=== PATIENT | female | born 1990 ===

== ENCOUNTER 2017-01-07 10:59 | Inpatient (IN) | payer MEDICAID, OTHER ==
[2017-01-07 11:01] VITALS: BMI 28.7
[2017-01-07] MEDS: Lactated Ringer's 1,000 ML IV SCH ×2 (11:10→22:00)
--- NOTE | 2017-01-07 11:11 | OBADHP ---
Datetime: 01/07/2017 11:05 IP Chief Complaint Other: dysuria and left cva tenderness Admit Comment, IP Provider: at 28 weeks came with left cva pain started last night 7 pm, 10/10 and dysuria today this morning. pt started having fever today, no ctxs, vb, lof,+fm obhx primi pmh denies med pnv all nkda psh denies soch denires ve closed a/p at 28weeks left pylopnephritis admit to l7d ivf rocephin 1 gm once a day cbc/cmp/ua/u cultre tylenol prn cont [place] and efm renal sonogram/ob sono later dr Mazariegos aware Pelvic Type - PN: Adequate Extremities - PN: Normal Abdomen - PN: Normal Back - PN: Normal Breast - PN: Normal Lungs - PN: Normal Heart - PN: Normal Thyroid - PN: Normal Neurologic - PN: Normal HEENT - PN: Normal General - PN: Normal FHR - Baseline A Provider: 160 Contraction Comments Provider: none Comments, ACOG Physical Exam: gravid,non tendr ext no edema,no calf ten ve closed left cva ten IP Hx Assessment: The History has been Reviewed and is Current Vital Signs Provider: Reviewed IP Chief Complaint: Maternal discomfort NICHD Variability Prov Fetus A: Moderate 6-25bpm NICHD Accel Fetus A IP Provider: [id number] FHR Category Provider Fetus A: Category I Dilatation, Provider: 0 Effacement, Provider: 0 Station, Provider: =3 Genitourinary Exam: Normal DTRs - PN: Normal IP Adm Impression: , intrauterine IP Admit Plan: Admit to unit
[2017-01-07] MEDS: cefTRIAXone IV 1 gm in Dextros 50 ML IVPB SCH (11:25)
[2017-01-07 11:51] LABS: BASO % 0.2 % (0.0-2.0); EOS % 0.1 % (0.0-4.0); HEMATOCRIT 30.1 % (34.0-47.0); LYMPH # 1.2 K/uL (1.0-4.3); LYMPH % 6.6 % (20.0-40.0); MEAN CELL VOLUME 82.9 fL (81.0-99.0); MEAN CORPUSCULAR HEMOGLOBIN 27.8 pg (27.0-31.0); MEAN CORPUSCULAR HGB CONC 33.6 g/dL (33.0-37.0); MEAN PLATELET VOLUME 8.3 fL (7.2-11.7); MONO # 1.7 K/uL (0.0-0.8); MONO % 8.9 % (0.0-10.0); NRBC % 0.2 % (0.0-2.0); PLATELET COUNT 260 K/uL (130-400); RED CELL DISTRIBUTION WIDTH 14.2 % (11.5-14.5)
[2017-01-07 11:59] LABS: RBC URINE 13 /hpf (0-3); URINE BACTERIA OCC (<OCC); URINE BILIRUBIN NEGATIVE (NEGATIVE); URINE BLOOD 2+ (NEGATIVE); URINE COLOR Amber (YELLOW); URINE GLUCOSE (UA) NORMAL (Normal); URINE KETONE 2+ mg/dL (NEGATIVE); URINE LEUKOCYTE ESTERASE 3+ Leu/uL (Negative); URINE PROTEIN 1+ mg/dL (NEGATIVE); URINE UROBILINOGEN NORMAL mg/dL (0.2-1.0); WBC URINE 206 /hpf (0-5)
[2017-01-07 12:01] LABS: CHLORIDE 98 mmol/L (98-107); SODIUM 134 mmol/L (132-148)
[2017-01-07 12:03] LABS: ALB/GLOB RATIO 0.9 (1.0-2.1); ALKALINE PHOSPHATASE 127 U/L (38-126); AST/SGOT 26 U/L (14-36); BILIRUBIN,TOTAL 1.3 mg/dL (0.2-1.3); CARBON DIOXIDE 19 mmol/L (22-30); GFR AFRICAN-AMERICAN > 60; TOTAL PROTEIN 7.3 g/dL (6.3-8.3)
[2017-01-07 12:04] LABS: ALT/SGPT 20 U/L (9-52); BLOOD UREA NITROGEN 6 mg/dL (7-17); GLUCOSE,RANDOM 92 mg/dL (65-105)
[2017-01-07 12:16] LABS: POTASSIUM 2.8 mmol/L (3.6-5.2)
[2017-01-07 12:41] LABS: NEUTROPHIL 72 % (50-75); NUCLEATED RED BLOOD CELL 1 % (0-0); TOTAL CELLS COUNTED 100
[2017-01-07] MEDS: Dextrose 5%/Lactated Ringer's 1,000 ML IV SCH (14:20)
--- NOTE | 2017-01-07 15:44 | US ---
PROCEDURE: Renal ultrasound dated 01/07/2017 HISTORY: left pylonephritis, 29week preg COMPARISON: No prior study available for comparison. TECHNIQUE: Sonographic evaluation of the kidneys performed. FINDINGS: Right kidney measures 11.8 x 5.2 x 5.9 cm. Right kidney exhibits mild right-sided hydronephrosis. . Small echogenic focus measuring approximately 1.08 mm in the midpole right kidney could represent nonobstructing calculus. Left kidney measures 12.3 x 6.9 x 5.1 cm. . Shadowing calculi also noted in the left renal pelvis region with very mild left-sided hydronephrosis. Note that the possibility of pyelonephritis cannot be excluded based on this study. IMPRESSION: Bilateral renal calculi with mild bilateral hydronephrosis. Note that the possibility of pyelonephritis cannot be excluded.
--- NOTE | 2017-01-07 15:53 | US ---
PROCEDURE: HISTORY: left pylonephritis COMPARISON: TECHNIQUE: FINDINGS: Single live intrauterine fetus in cephalic presentation with an anterior placenta without previa. motion and heart motion is identified at 154 beats per minute. biometric measurements demonstrates the BPD measures 7.4 centimeters corresponding to 30 weeks gestational age. The remaining biometric measurements are concordant with the BPD. anatomic survey was not performed. Amniotic fluid is within normal limits. IMPRESSION: Thirty week intrauterine gestation. Anatomic survey not performed.
--- NOTE | 2017-01-07 20:20 | CP.PCM.CON ---
<Shantal Walker C - Last Filed: 01/07/17 20:20> Past Patient History - Infectious Disease Hx of Infectious Diseases: None - Past Social History Smoking Status: Never Smoked - PSYCHIATRIC Hx Substance Use: No - SURGICAL HISTORY Hx Surgeries: No - ANESTHESIA Hx Anesthesia: No Meds Allergies/Adverse Reactions: Allergies Allergy/AdvReac Type Severity Reaction Status Date / Time No Known Allergies Allergy Verified 08/04/16 22:52 - Medications Medications: Current Medications Acetaminophen (Tylenol 325mg Tab) 650 mg PO Q6 PRN PRN Reason: Fever >100.4 F Last Admin: 01/07/17 11:20 Dose: 650 mg Acetaminophen (Tylenol 325 Mg Supp) 650 mg CO Q4 PRN PRN Reason: Fever >100.4 F Last Admin: 01/07/17 19:26 Dose: 650 mg Ceftriaxone Sodium (Rocephin Iv 1 Gm Duplex) 50 mls @ 100 mls/hr IVPB DAILY [facility] Last Admin: 01/07/17 11:25 Dose: 100 mls/hr Lactated Ringer's (Lactated Ringer's) 1,000 mls @ 125 mls/hr IV .Q8H [facility] Last Admin: 01/07/17 11:10 Dose: 125 mls/hr Dextrose/Lactated Ringer's (Dextrose 5%/Lactated Ringer's) 1,000 mls @ 125 mls/ hr IV .Q8H [facility] Last Admin: 01/07/17 14:20 Dose: 125 mls/hr Results - Vital Signs Recent Vital Signs: Last Vital Signs Temp 100.6 F H 01/07/17 19:26 Pulse Resp BP Pulse Ox - Labs Result Diagrams: 01/07/17 11:44 01/07/17 11:44 Labs: Laboratory Results - last 24 hr 01/07/17 11:44 WBC 19.0 H D RBC 3.63 L Hgb 10.1 L D Hct 30.1 L MCV 82.9 MCH 27.8 MCHC 33.6 RDW 14.2 Plt Count 260 MPV 8.3 Neut % (Auto) 84.2 H Lymph % (Auto) 6.6 L [place] % (Auto) 8.9 Eos % (Auto) 0.1 Baso % (Auto) 0.2 Neut # 16.0 H Lymph # 1.2 [place] # 1.7 H Eos # 0.0 Baso # 0.0 Neutrophils % (Manual) 72 Band Neutrophils % 13 H* Lymphocytes % (Manual) 7 L Monocytes % (Manual) 8 Nucleated RBC % 1 H Platelet Estimate Normal Poikilocytosis (manual Slight Sodium 134 Potassium 2.8 L Chloride 98 Carbon Dioxide 19 L Anion Gap 20 BUN 6 L Creatinine 0.6 L Est GFR ( Amer) > 60 Est GFR (Non-Af Amer) > 60 Random Glucose 92 Calcium 9.0 Total Bilirubin 1.3 AST 26 ALT 20 Alkaline Phosphatase 127 H D Total Protein 7.3 Albumin 3.5 D Globulin 3.8 Albumin/Globulin Ratio 0.9 L Urine Color [place] Urine Clarity Hazy Urine pH 6.0 Ur Specific [place] 1.018 Urine Protein 1+ H Urine Glucose (UA) Normal Urine Ketones 2+ H Urine Blood 2+ H Urine Nitrate Positive H Urine Bilirubin Negative Urine Urobilinogen Normal Ur Leukocyte Esterase 3+ H Urine WBC (Auto) 206 H Urine RBC (Auto) 13 H Ur Squamous Epith Cells 62 H Urine Bacteria Occ H Blood Type O POSITIVE Antibody Screen Negative Assessment & Plan - Assessment and Plan (Free Text) Assessment: IMP: UTI UROLITHIASIS - Date & Time Date: 01/07/17 Time: 20:20 <Oscar Knowles - Last Filed: 01/08/17 17:28> History of Present Illness - History of Present Illness History of Present Illness: CRITICAL CARE PROGRESS NOTE HPI: 26 year old patient at 28 weeks gestation presents to [facility] [place] L&D ED overnight on 01/07/17 with complaints of left CVA pain which started at 7PM the night before. Pain was rated 10/10 and achy in nature. Patient also complained of dysuria and fever which began yesterday. Patient was admitted to L&D and started on IV fluids and Rocephin. ID was consulted and Meropenem was added today. This morning patient became hypotensive and febrile despite being administered Tylenol. 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 Of note, patient has had at least two UTIs during this current course which were treated. Patient denies chest pain, abdominal pain, current nausea, vomiting, diarrhea, constipation, paresthesias, palpitations at this time. PMH: no chronic diseases, just history of at least two UTIs with current Surgical Hx: none FamHx: unknown Meds: vitamins All: NKDA Social Hx: Denies tobacco, ETOH, illicit drug use Review of Systems - Review of Systems Systems not reviewed;Unavailable: Language Barrier - Constitutional Constitutional: Chills, Fever - EENT Eyes: absent: Blurred Vision, Change in Vision Ears: absent: Decreased Hearing, Ear Discharge Nose/Mouth/Throat: absent: Epistaxis, Nasal Congestion, Nasal Discharge - Cardiovascular Cardiovascular: absent: Chest Pain, Chest Pain at Rest, Chest Pain with Activity - Respiratory Respiratory: absent: Cough, Hemoptysis, Dyspnea on Exertion, Wheezing - Gastrointestinal Gastrointestinal: Nausea, Vomiting - Genitourinary Genitourinary: Dysuria, Urinary Frequency, Freq UTI - Reproductive: Female Reproductive:Female: absent: Vaginal Odor, Vaginal Pruritis Meds - Medications Medications: Current Medications Acetaminophen (Tylenol 325mg Tab) 650 mg PO Q6 PRN PRN Reason: Fever >100.4 F Last Admin: 01/08/17 12:10 Dose: 650 mg Ceftriaxone Sodium (Rocephin Iv 1 Gm Duplex) 50 mls @ 100 mls/hr IVPB DAILY [facility] Last Admin: 01/08/17 11:13 Dose: 100 mls/hr Dextrose/Lactated Ringer's (Dextrose 5%/Lactated Ringer's) 1,000 mls @ 125 mls/ hr IV .Q8H [facility] Last Admin: 01/08/17 07:00 Dose: 125 mls/hr Lactated Ringer's (Lactated Ringer's) 1,000 mls @ 150 mls/hr IV .Q6H40M [facility] Last Admin: 01/08/17 16:35 Dose: Not Given Meropenem 1 gm/ Sodium (Chloride) 100 mls @ 100 mls/hr IVPB Q8H [facility] Last Admin: 01/08/17 16:21 Dose: 100 mls/hr Potassium Chloride (Potassium Chloride 20 Meq/100 Ml) 100 mls @ 50 mls/hr IVPB ONCE ONE Stop: 01/08/17 18:01 Last Admin: 01/08/17 16:19 Dose: 50 mls/hr Multivit/Folic Acid/Iron () 1 tab PO DAILY [facility] Results - Vital Signs Recent Vital Signs: Last Vital Signs Temp 101.7 F H 01/08/17 12:10 Pulse 111 H 01/08/17 06:00 Resp 18 01/08/17 06:00 BP 94/47 L 01/08/17 06:00 Pulse Ox - Labs Result Diagrams: 01/08/17 16:32 01/08/17 16:20 Labs: Laboratory Results - last 24 hr 01/08/17 01/08/17 01/08/17 04:34 08:16 11:30 WBC 19.0 H RBC 3.02 L Hgb 8.3 L Hct 24.8 L MCV 82.2 MCH 27.6 MCHC 33.5 RDW 13.9 Plt Count 190 MPV 8.3 Neut % (Auto) Lymph % (Auto) [place] % (Auto) Eos % (Auto) Baso % (Auto) Neut # Lymph # [place] # Eos # Baso # PT INR APTT pO2 VBG pH VBG pCO2 VBG HCO3 VBG Total CO2 VBG O2 Sat (Calc) VBG Base Excess VBG Potassium Glucose Lactate Sodium 135 Potassium 2.5 L* Chloride 100 Carbon Dioxide 21 L Anion Gap 17 BUN 5 L Creatinine 0.7 Est GFR ( Amer) > 60 Est GFR (Non-Af Amer) > 60 Random Glucose 105 Lactic Acid 2.7 H Calcium 8.5 L Phosphorus Magnesium Total Bilirubin 1.1 AST 21 ALT 18 Alkaline Phosphatase 101 Total Protein 6.3 Albumin 2.9 L Globulin 3.4 Albumin/Globulin Ratio 0.8 L Venous Blood Potassium 01/08/17 01/08/17 01/08/17 16:00 16:20 16:32 WBC 16.1 H RBC 3.07 L Hgb 8.6 L Hct 25.6 L MCV 83.2 MCH 28.0 MCHC 33.7 RDW 14.2 Plt Count 158 MPV 7.9 Neut % (Auto) 81.8 H Lymph % (Auto) 10.1 L [place] % (Auto) 7.5 Eos % (Auto) 0.2 Baso % (Auto) 0.4 Neut # 13.2 H Lymph # 1.6 [place] # 1.2 H Eos # 0.0 Baso # 0.1 PT 12.0 INR 1.1 APTT 26 pO2 24 L VBG pH 7.44 H VBG pCO2 30 L VBG HCO3 21.4 VBG Total CO2 21.3 L VBG O2 Sat (Calc) 55.1 VBG Base Excess -2.7 L VBG Potassium 3.1 L Glucose 98 Lactate 1.9 Sodium 137.0 135 Potassium 3.2 L Chloride 111.0 H 101 Carbon Dioxide 19 L Anion Gap 18 BUN 4 L Creatinine 0.7 Est GFR ( Amer) > 60 Est GFR (Non-Af Amer) > 60 Random Glucose 96 Lactic Acid Calcium 8.3 L Phosphorus 2.5 Magnesium 1.4 L Total Bilirubin AST ALT Alkaline Phosphatase Total Protein Albumin Globulin Albumin/Globulin Ratio Venous Blood Potassium 3.1 L
[2017-01-08 04:40] LABS: HEMATOCRIT 24.8 % (34.0-47.0); MEAN CELL VOLUME 82.2 fL (81.0-99.0); MEAN CORPUSCULAR HEMOGLOBIN 27.6 pg (27.0-31.0); MEAN CORPUSCULAR HGB CONC 33.5 g/dL (33.0-37.0); MEAN PLATELET VOLUME 8.3 fL (7.2-11.7); RED CELL DISTRIBUTION WIDTH 13.9 % (11.5-14.5)
[2017-01-08] MEDS: Dextrose 5%/Lactated Ringer's 1,000 ML IV SCH (07:00)
[2017-01-08 08:43] LABS: CHLORIDE 100 mmol/L (98-107); SODIUM 135 mmol/L (132-148)
[2017-01-08 08:45] LABS: BILIRUBIN,TOTAL 1.1 mg/dL (0.2-1.3); CARBON DIOXIDE 21 mmol/L (22-30); GFR AFRICAN-AMERICAN > 60
[2017-01-08 08:46] LABS: ALB/GLOB RATIO 0.8 (1.0-2.1); ALKALINE PHOSPHATASE 101 U/L (38-126); ALT/SGPT 18 U/L (9-52); AST/SGOT 21 U/L (14-36); BLOOD UREA NITROGEN 5 mg/dL (7-17); CALCIUM 8.5 mg/dl (8.6-10.4); GLUCOSE,RANDOM 105 mg/dL (65-105); TOTAL PROTEIN 6.3 g/dL (6.3-8.3)
[2017-01-08 08:57] LABS: POTASSIUM 2.5 mmol/L (3.6-5.2)
[2017-01-08] MEDS ORDERED: Potassium Chloride 20 mEq 100 ML IVPB ONE ×4 (10:10→22:39)
[2017-01-08] MEDS ORDERED: Potassium Chloride 20 mEq ER Tab PO ONE (10:10)
[2017-01-08] MEDS: cefTRIAXone IV 1 gm in Dextros 50 ML IVPB SCH (11:13)
[2017-01-08] MEDS ORDERED: cefTRIAXone IV 1 gm in Dextros 50 ML IVPB ONE (12:03)
--- NOTE | 2017-01-08 15:35 | CP.PCM.CON ---
Past Patient History - Infectious Disease Hx of Infectious Diseases: None - Past Social History Smoking Status: Never Smoked - PSYCHIATRIC Hx Substance Use: No - SURGICAL HISTORY Hx Surgeries: No - ANESTHESIA Hx Anesthesia: No Meds Allergies/Adverse Reactions: Allergies Allergy/AdvReac Type Severity Reaction Status Date / Time No Known Allergies Allergy Verified 08/04/16 22:52 - Medications Medications: Current Medications Acetaminophen (Tylenol 325mg Tab) 650 mg PO Q6 PRN PRN Reason: Fever >100.4 F Last Admin: 01/08/17 12:10 Dose: 650 mg Ceftriaxone Sodium (Rocephin Iv 1 Gm Duplex) 50 mls @ 100 mls/hr IVPB [facility]ILY [facility] Last Admin: 01/08/17 11:13 Dose: 100 mls/hr Dextrose/Lactated Ringer's (Dextrose 5%/Lactated Ringer's) 1,000 mls @ 125 mls/ hr IV .Q8H [facility] Last Admin: 01/08/17 07:00 Dose: 125 mls/hr Lactated Ringer's (Lactated Ringer's) 1,000 mls @ 150 mls/hr IV .Q6H40M [facility] Meropenem 1 gm/ Sodium (Chloride) 100 mls @ 100 mls/hr IVPB Q8H [facility] Physical Exam - Constitutional Appears: No Acute Distress - Head Exam Head Exam: ATRAUMATIC, NORMAL INSPECTION, NORMOCEPHALIC - Eye Exam Eye Exam: EOMI, Normal appearance, PERRL Pupil Exam: NORMAL ACCOMODATION, PERRL - ENT Exam ENT Exam: Mucous Membranes Moist - Neck Exam Neck exam: Positive for: Full Rom. Negative for: Lymphadenopathy - Respiratory Exam Respiratory Exam: Clear to Auscultation Bilateral, NORMAL BREATHING PATTERN. absent: Wheezes - Cardiovascular Exam Cardiovascular Exam: REGULAR RHYTHM, +S1, +S2 - GI/Abdominal Exam GI & Abdominal Exam: Normal Bowel Sounds, Soft Additional comments: gravid - Extremities Exam Extremities exam: Positive for: full ROM, normal capillary refill, pedal pulses present. Negative for: calf tenderness, pedal edema, tenderness - Back Exam Additional comments: left flank tenderness - Neurological Exam Neurological exam: Alert, CN II-XII Intact, Oriented x3 - Psychiatric Exam Psychiatric exam: Normal Affect, Normal Mood Results - Vital Signs Recent Vital Signs: Last Vital Signs Temp 101.7 F H 01/08/17 12:10 Pulse 111 H 01/08/17 06:00 Resp 18 01/08/17 06:00 BP 94/47 L 01/08/17 06:00 Pulse Ox - Labs Result Diagrams: 01/08/17 16:32 01/08/17 16:20 Labs: Laboratory Results - last 24 hr 01/08/17 01/08/17 01/08/17 04:34 08:16 11:30 WBC 19.0 H RBC 3.02 L Hgb 8.3 L Hct 24.8 L MCV 82.2 MCH 27.6 MCHC 33.5 RDW 13.9 Plt Count 190 MPV 8.3 Sodium 135 Potassium 2.5 L* Chloride 100 Carbon Dioxide 21 L Anion Gap 17 BUN 5 L Creatinine 0.7 Est GFR ( Amer) > 60 Est GFR (Non-Af Amer) > 60 Random Glucose 105 Lactic Acid 2.7 H Calcium 8.5 L Total Bilirubin 1.1 AST 21 ALT 18 Alkaline Phosphatase 101 Total Protein 6.3 Albumin 2.9 L Globulin 3.4 Albumin/Globulin Ratio 0.8 L
[2017-01-08 16:08] LABS: VENOUS BLOOD GAS BASE EXCESS -2.7 mmol/L (0.0-2.0); VENOUS BLOOD GAS PCO2 30 mmHg (40-60); VENOUS BLOOD PH 7.44 (7.32-7.43)
[2017-01-08] MEDS ORDERED: Ketamine 50 mg/ml Inj (10 ml) ONE (16:10)
[2017-01-08] MEDS ORDERED: Propofol 10 mg/ml Inj (20 ML) ONE (16:12)
[2017-01-08] MEDS: Meropenem 1 GM in Sodium Chloride 0.9% 100 ML IVPB SCH ×2 (16:21→23:30)
[2017-01-08] MEDS ORDERED: Succinylcholine Chloride 20 mg/ml Syr (5 ml) IV ONE (16:26)
[2017-01-08 16:32] LABS: CHLORIDE 101 mmol/L (98-107); POTASSIUM 3.2 mmol/L (3.6-5.2); SODIUM 135 mmol/L (132-148)
[2017-01-08] MEDS ORDERED: Sodium Citrate/Citric Acid 15 ml Sol ONE (16:32)
[2017-01-08 16:34] LABS: INR 1.1
[2017-01-08 16:35] LABS: BLOOD UREA NITROGEN 4 mg/dL (7-17); CARBON DIOXIDE 19 mmol/L (22-30); GFR AFRICAN-AMERICAN > 60
[2017-01-08] MEDS: Lactated Ringer's 1,000 ML IV SCH ×3 (16:35→23:55)
[2017-01-08 16:36] LABS: CALCIUM 8.3 mg/dl (8.6-10.4); GLUCOSE,RANDOM 96 mg/dL (65-105); MAGNESIUM 1.4 mg/dL (1.6-2.3); PHOSPHOROUS 2.5 mg/dL (2.5-4.5)
--- NOTE | 2017-01-08 16:36 | PCM.SEPTIC ---
Sepsis Progress Note - Reassessment Type Date of Evaluation: 01/08/17 Time of Evaluation: 16:00 Reassessment Type: Non-invasive reassessment - Non Invasive Reassessment Were the most recent vital sign reviewed: Yes Vital Sign (Latest): Temp Pulse Resp BP Pulse Ox 101.7 F H 111 H 18 94/47 L 01/08/17 12:10 01/08/17 06:00 01/08/17 06:00 01/08/17 06:00 Cardiovascular: Yes: Tachycardia. No: Murmur, Bradycardia Respiratory: Yes: Normal Breath Sounds. No: Decreased Breath Sounds, Accessory Muscle Use, Wheezing, Respiratory Distress Capillary Refill: Normal (Less than 2 sec) Pulses: Normal Radial, Normal Dorsalis Pedis Skin: Warm, Dry Fluid Challenge performed: Yes
[2017-01-08 16:42] LABS: BASO # 0.1 K/uL (0.0-0.2); BASO % 0.4 % (0.0-2.0); EOS % 0.2 % (0.0-4.0); HEMATOCRIT 25.6 % (34.0-47.0); LYMPH # 1.6 K/uL (1.0-4.3); LYMPH % 10.1 % (20.0-40.0); MEAN CELL VOLUME 83.2 fL (81.0-99.0); MEAN CORPUSCULAR HGB CONC 33.7 g/dL (33.0-37.0); MEAN PLATELET VOLUME 7.9 fL (7.2-11.7); MONO # 1.2 K/uL (0.0-0.8); MONO % 7.5 % (0.0-10.0); RED CELL DISTRIBUTION WIDTH 14.2 % (11.5-14.5); WHITE BLOOD COUNT 16.1 K/uL (4.8-10.8)
[2017-01-08] MEDS ORDERED: Lactated Ringer's 1,000 ML IV ONE (16:50)
--- NOTE | 2017-01-08 17:31 | PCM.SURG1 ---
Surgeon's Initial Post Op Note - Surgeon's Notes Surgeon: Herb DEL CID Inventory Control Associate: NONE Type of Anesthesia: General Endo Pre-Operative Diagnosis: SEPTIC SHOCK. UTI. HYDRONEPHROSIS. UROLITHIASIS Operative Findings: L PYONEPHROSIS Post-Operative Diagnosis: SAME Operation Performed: CYSTO, L URETERAL STENT INSERTION Specimen/Specimens Removed: URINE L KIDNEY, BLADDER Estimated Blood Loss: EBL {In ML}: 0 Blood Products Given: N/A Post-Op Condition: Good Date of Surgery/Procedure: 01/08/17 Time of Surgery/Procedure: 05:20
--- NOTE | 2017-01-08 17:35 | CP.PCM.CON ---
<Oscar Knowles - Last Filed: 01/08/17 17:44> History of Present Illness - History of Present Illness History of Present Illness: CRITICAL CARE PROGRESS NOTE HPI: 26 year old patient at 28 weeks gestation presents to [facility] L[facility] ED overnight on 01/07/17 with complaints of left CVA pain which started at 7PM the night before. Pain was rated 10/10 and achy in nature. Patient also complained of dysuria and fever which began yesterday. Patient was admitted to L&D and started on IV fluids and Rocephin. ID was consulted and Meropenem was added today. This morning patient became hypotensive and febrile despite being administered Tylenol. [employer] and code sepsis were called and the patient was transferred to ICU for close monitoring. Of note, patient has had at least two UTIs during this current course which were treated. Patient denies chest pain, abdominal pain, current nausea, vomiting, diarrhea, constipation, paresthesias, palpitations at this time. PMH: no chronic diseases, just history of at least two UTIs with current Surgical Hx: none FamHx: unknown Meds: vitamins All: NKDA Social Hx: Denies tobacco, ETOH, illicit drug use Review of Systems - Constitutional Constitutional: Chills, Fever. absent: Anorexia, Headache - EENT Eyes: absent: Blind Spots, Blurred Vision, Change in Vision Ears: absent: Decreased Hearing, Ear Discharge Nose/Mouth/Throat: absent: Nasal Congestion, Dysphagia - Cardiovascular Cardiovascular: absent: Chest Pain, Chest Pain at Rest, Chest Pain with Activity , Claudication, Dyspnea - Respiratory Respiratory: absent: Cough, Dyspnea, Hemoptysis, Dyspnea on Exertion, Chest Congestion - Gastrointestinal Gastrointestinal: Nausea. absent: Constipation, Diarrhea - Genitourinary Genitourinary: Dysuria - Menstruation Menstruation: Amenorrhea, Other () - Musculoskeletal Musculoskeletal: Arthralgias, Back Pain - Integumentary Integumentary: absent: Change in Hair, Dry Skin - Neurological Neurological: absent: Abnormal Hearing, Abnormal Movements - Psychiatric Psychiatric: absent: Anxiety, Change in Appetite, Difficulty Concentrating Past Patient History - Infectious Disease Hx of Infectious Diseases: None - Past Social History Smoking Status: Never Smoked - PSYCHIATRIC Hx Substance Use: No - SURGICAL HISTORY Hx Surgeries: No - ANESTHESIA Hx Anesthesia: No Meds Allergies/Adverse Reactions: Allergies Allergy/AdvReac Type Severity Reaction Status Date / Time No Known Allergies Allergy Verified 08/04/16 22:52 - Medications Medications: Current Medications Acetaminophen (Tylenol 325mg Tab) 650 mg PO Q6 PRN PRN Reason: Fever >100.4 F Last Admin: 01/08/17 12:10 Dose: 650 mg Ceftriaxone Sodium (Rocephin Iv 1 Gm Duplex) 50 mls @ 100 mls/hr IVPB DAILY [facility] Last Admin: 01/08/17 11:13 Dose: 100 mls/hr Dextrose/Lactated Ringer's (Dextrose 5%/Lactated Ringer's) 1,000 mls @ 125 mls/ hr IV .Q8H [facility] Last Admin: 01/08/17 07:00 Dose: 125 mls/hr Lactated Ringer's (Lactated Ringer's) 1,000 mls @ 150 mls/hr IV .Q6H40M [facility] Last Admin: 01/08/17 16:35 Dose: Not Given Meropenem 1 gm/ Sodium (Chloride) 100 mls @ 100 mls/hr IVPB Q8H [facility] Last Admin: 01/08/17 16:21 Dose: 100 mls/hr Potassium Chloride (Potassium Chloride 20 Meq/100 Ml) 100 mls @ 50 mls/hr IVPB ONCE ONE Stop: 01/08/17 18:01 Last Admin: 01/08/17 16:19 Dose: 50 mls/hr Multivit/Folic Acid/Iron () 1 tab PO DAILY [facility] Physical Exam - Constitutional Appears: Non-toxic, No Acute Distress - Head Exam Head Exam: ATRAUMATIC, NORMAL INSPECTION, NORMOCEPHALIC - Eye Exam Eye Exam: EOMI, Normal appearance, PERRL Pupil Exam: NORMAL ACCOMODATION - ENT Exam ENT Exam: Mucous Membranes Moist - Neck Exam Neck exam: Positive for: Full Rom - Respiratory Exam Respiratory Exam: Clear to Auscultation Bilateral, NORMAL BREATHING PATTERN. absent: Accessory Muscle Use, Wheezes - Cardiovascular Exam Cardiovascular Exam: Tachycardia, +S1, +S2. absent: Bradycardia, Clicks, Diastolic murmur - GI/Abdominal Exam GI & Abdominal Exam: Normal Bowel Sounds, Soft. absent: Tenderness Additional comments: gravid abdomen - Extremities Exam Extremities exam: Positive for: full ROM, pedal pulses present. Negative for: joint swelling, pedal edema, tenderness - Back Exam Back exam: CVA tenderness (L), FULL ROM - Neurological Exam Neurological exam: Alert, CN II-XII Intact, Oriented x3 - Psychiatric Exam Psychiatric exam: Normal Affect, Normal Mood - Skin Skin Exam: Dry, Intact, Normal Color, Warm Results - Vital Signs Recent Vital Signs: Last Vital Signs Temp 99.8 F H 01/08/17 16:00 Pulse 117 H 01/08/17 16:00 Resp 20 01/08/17 16:00 BP 106/63 01/08/17 16:00 Pulse Ox 97 01/08/17 16:00 - Labs Result Diagrams: 01/08/17 16:32 01/08/17 16:20 Labs: Laboratory Results - last 24 hr 01/08/17 01/08/17 01/08/17 04:34 08:16 11:30 WBC 19.0 H RBC 3.02 L Hgb 8.3 L Hct 24.8 L MCV 82.2 MCH 27.6 MCHC 33.5 RDW 13.9 Plt Count 190 MPV 8.3 Neut % (Auto) Lymph % (Auto) [place] % (Auto) Eos % (Auto) Baso % (Auto) Neut # Lymph # [place] # Eos # Baso # PT INR APTT pO2 VBG pH VBG pCO2 VBG HCO3 VBG Total CO2 VBG O2 Sat (Calc) VBG Base Excess VBG Potassium Glucose Lactate Sodium 135 Potassium 2.5 L* Chloride 100 Carbon Dioxide 21 L Anion Gap 17 BUN 5 L Creatinine 0.7 Est GFR ( Amer) > 60 Est GFR (Non-Af Amer) > 60 Random Glucose 105 Lactic Acid 2.7 H Calcium 8.5 L Phosphorus Magnesium Total Bilirubin 1.1 AST 21 ALT 18 Alkaline Phosphatase 101 Total Protein 6.3 Albumin 2.9 L Globulin 3.4 Albumin/Globulin Ratio 0.8 L Venous Blood Potassium 01/08/17 01/08/17 01/08/17 16:00 16:20 16:32 WBC 16.1 H RBC 3.07 L Hgb 8.6 L Hct 25.6 L MCV 83.2 MCH 28.0 MCHC 33.7 RDW 14.2 Plt Count 158 MPV 7.9 Neut % (Auto) 81.8 H Lymph % (Auto) 10.1 L [place] % (Auto) 7.5 Eos % (Auto) 0.2 Baso % (Auto) 0.4 Neut # 13.2 H Lymph # 1.6 [place] # 1.2 H Eos # 0.0 Baso # 0.1 PT 12.0 INR 1.1 APTT 26 pO2 24 L VBG pH 7.44 H VBG pCO2 30 L VBG HCO3 21.4 VBG Total CO2 21.3 L VBG O2 Sat (Calc) 55.1 VBG Base Excess -2.7 L VBG Potassium 3.1 L Glucose 98 Lactate 1.9 Sodium 137.0 135 Potassium 3.2 L Chloride 111.0 H 101 Carbon Dioxide 19 L Anion Gap 18 BUN 4 L Creatinine 0.7 Est GFR ( Amer) > 60 Est GFR (Non-Af Amer) > 60 Random Glucose 96 Lactic Acid Calcium 8.3 L Phosphorus 2.5 Magnesium 1.4 L Total Bilirubin AST ALT Alkaline Phosphatase Total Protein Albumin Globulin Albumin/Globulin Ratio Venous Blood Potassium 3.1 L Assessment & Plan - Assessment and Plan (Free Text) Assessment: 26yo at 28wks presenting with pyelonephritis. Transferred to ICU for monitoring of hypotension after code sepsis called. Plan: Neuro: AAOX3 No gross neurological deficits CVS: Hypotensive (94/47) Tachycardic (HR 111) Monitor VS Resp: VBG: pCO2 30, pO2 24, HCO3 21.4 Lactic acid: 2.7 GI: Maintain euglycemia : 28 wks UTI - abx as below B/L nephrolithiasis with mild b/l hydronephrosis Possible pyelonephritis Urology (Dr. Shantal Walker) consulted - help appreciated s/p cystoscopy with ureteral stent placement this afternoon.- F/U recommendations 01/07/17 OB U/S: Thirty week intrauterine gestation. Anatomic survey not performed. 01/07/17 Renal U/S: Bilateral renal calculi with mild bilateral hydronephrosis. Note that the possibility of pyelonephritis cannot be excluded. UA (01/07/17): protein 1+, ketones 2+, blood 2+, nitrates +, Leuk est 3+, WBCs 206, RBCs 13, sq epith cells 62, bacteria Occ BUN/Cr: 5.0/0.7 IVF: D5LR @125mls/hr IV, LR@150mls/hr IV heart monitoring Q 6 hours and NST Q12 while in ICU and medical floor per OBGYN team Heme: Leukocytosis (WBC 19.0) Anemia (Hgb 8.3) Hypokalemia (2.5-> 3.2) - repleted. Will replete ID: febrile (101.7F) Leukocytosis (WBC 19.0) Bandemia (13%) Urine and blood cxs pending 01/07/17 Urine cx: multiple species. suggest repeat specimen ID (Dr. Fierro) on the case - help appreciated Ceftriaxone 1g IVP daily - Day #2 Meropenem 1gm IVPB Q8H - Day #1 Prophylaxis: SCDs Acetaminophen 650mg PO Q6h prn Fever >100.4 <Guillermo Tony - Last Filed: 01/08/17 18:28> Meds - Medications Medications: Current Medications Acetaminophen (Tylenol 325mg Tab) 650 mg PO Q6 PRN PRN Reason: Fever >100.4 F Last Admin: 01/08/17 12:10 Dose: 650 mg Ceftriaxone Sodium (Rocephin Iv 1 Gm Duplex) 50 mls @ 100 mls/hr IVPB DAILY [facility] Last Admin: 01/08/17 11:13 Dose: 100 mls/hr Dextrose/Lactated Ringer's (Dextrose 5%/Lactated Ringer's) 1,000 mls @ 125 mls/ hr IV .Q8H [facility] Last Admin: 01/08/17 07:00 Dose: 125 mls/hr Lactated Ringer's (Lactated Ringer's) 1,000 mls @ 150 mls/hr IV .Q6H40M [facility] Last Admin: 01/08/17 18:05 Dose: 150 mls/hr Meropenem 1 gm/ Sodium (Chloride) 100 mls @ 100 mls/hr IVPB Q8H [facility] Last Admin: 01/08/17 16:21 Dose: 100 mls/hr Magnesium Sulfate/Dextrose (Magnesium Sulfate 1 Gm/100 Ml D5w) 100 mls @ 200 mls/hr IVPB ONCE ONE Stop: 01/08/17 18:29 Last Admin: 01/08/17 18:08 Dose: 200 mls/hr Potassium Chloride (Potassium Chloride 20 Meq/100 Ml) 100 mls @ 50 mls/hr IVPB Q2H [facility] Stop: 01/08/17 22:14 Last Admin: 01/08/17 18:08 Dose: 50 mls/hr Multivit/Folic Acid/Iron () 1 tab PO DAILY [facility] Results - Vital Signs Recent Vital Signs: Last Vital Signs Temp 99.8 F H 01/08/17 16:00 Pulse 117 H 01/08/17 16:00 Resp 20 01/08/17 16:00 BP 106/63 01/08/17 16:00 Pulse Ox 97 01/08/17 16:00 - Labs Result Diagrams: 01/08/17 16:32 01/08/17 16:20 Labs: Laboratory Results - last 24 hr 01/08/17 01/08/17 01/08/17 04:34 08:16 11:30 WBC 19.0 H RBC 3.02 L Hgb 8.3 L Hct 24.8 L MCV 82.2 MCH 27.6 MCHC 33.5 RDW 13.9 Plt Count 190 MPV 8.3 Neut % (Auto) Lymph % (Auto) [place] % (Auto) Eos % (Auto) Baso % (Auto) Neut # Lymph # [place] # Eos # Baso # PT INR APTT pO2 VBG pH VBG pCO2 VBG HCO3 VBG Total CO2 VBG O2 Sat (Calc) VBG Base Excess VBG Potassium Glucose Lactate Sodium 135 Potassium 2.5 L* Chloride 100 Carbon Dioxide 21 L Anion Gap 17 BUN 5 L Creatinine 0.7 Est GFR ( Amer) > 60 Est GFR (Non-Af Amer) > 60 Random Glucose 105 Lactic Acid 2.7 H Calcium 8.5 L Phosphorus Magnesium Total Bilirubin 1.1 AST 21 ALT 18 Alkaline Phosphatase 101 Total Protein 6.3 Albumin 2.9 L Globulin 3.4 Albumin/Globulin Ratio 0.8 L Venous Blood Potassium Blood Type Antibody Screen 01/08/17 01/08/17 01/08/17 16:00 16:20 16:32 WBC 16.1 H RBC 3.07 L Hgb 8.6 L Hct 25.6 L MCV 83.2 MCH 28.0 MCHC 33.7 RDW 14.2 Plt Count 158 MPV 7.9 Neut % (Auto) 81.8 H Lymph % (Auto) 10.1 L [place] % (Auto) 7.5 Eos % (Auto) 0.2 Baso % (Auto) 0.4 Neut # 13.2 H Lymph # 1.6 [place] # 1.2 H Eos # 0.0 Baso # 0.1 PT 12.0 INR 1.1 APTT 26 pO2 24 L VBG pH 7.44 H VBG pCO2 30 L VBG HCO3 21.4 VBG Total CO2 21.3 L VBG O2 Sat (Calc) 55.1 VBG Base Excess -2.7 L VBG Potassium 3.1 L Glucose 98 Lactate 1.9 Sodium 137.0 135 Potassium 3.2 L Chloride 111.0 H 101 Carbon Dioxide 19 L Anion Gap 18 BUN 4 L Creatinine 0.7 Est GFR ( Amer) > 60 Est GFR (Non-Af Amer) > 60 Random Glucose 96 Lactic Acid Calcium 8.3 L Phosphorus 2.5 Magnesium 1.4 L Total Bilirubin AST ALT Alkaline Phosphatase Total Protein Albumin Globulin Albumin/Globulin Ratio Venous Blood Potassium 3.1 L Blood Type O POSITIVE Antibody Screen Negative Attending/Attestation - Attestation I have personally seen and examined this patient.: Yes I have fully participated in the care of the patient.: Yes I have reviewed all pertinent clinical information: Yes Notes (Text): 01/08/17 18:25 Patient seen and examined 26yo at 28wks presenting with pyelonephritis. Transferred to ICU for monitoring of hypotension after code sepsis called. Status post cystoscopy and ureteral stent placement Continue IV fluids and antibiotics Follow-up culture and sensitivity
--- NOTE | 2017-01-08 17:38 | CP.PCM.PN ---
Subjective - Date & Time of Evaluation Date of Evaluation: 01/08/17 Time of Evaluation: 05:00 - Subjective Subjective: PGY3 OBGYN progress note Was present during patient's procedure. Auscultated heart tones of 148 before anesthesia, 136 after anesthesia and 148 after the surgery was completed. Patient to go back to ICU for close monitoring. Orders placed for heart tone auscultation q6 hours and NST q12 hours while in ICU and on the medical floor. Plan discussed with Attending, Dr. Delilah Morton, DO Objective - Vital Signs/Intake and Output Vital Signs (last 24 hours): Temp Pulse Resp BP Pulse Ox 101.7 F H 111 H 18 94/47 L 01/08/17 12:10 01/08/17 06:00 01/08/17 06:00 01/08/17 06:00 Intake and Output: 01/08/17 01/08/17 06:59 18:59 Intake Total 150 Balance 150 - Medications Medications: Current Medications Acetaminophen (Tylenol 325mg Tab) 650 mg PO Q6 PRN PRN Reason: Fever >100.4 F Last Admin: 01/08/17 12:10 Dose: 650 mg Ceftriaxone Sodium (Rocephin Iv 1 Gm Duplex) 50 mls @ 100 mls/hr IVPB DAILY [facility] Last Admin: 01/08/17 11:13 Dose: 100 mls/hr Dextrose/Lactated Ringer's (Dextrose 5%/Lactated Ringer's) 1,000 mls @ 125 mls/ hr IV .Q8H [facility] Last Admin: 01/08/17 07:00 Dose: 125 mls/hr Lactated Ringer's (Lactated Ringer's) 1,000 mls @ 150 mls/hr IV .Q6H40M [facility] Last Admin: 01/08/17 16:35 Dose: Not Given Meropenem 1 gm/ Sodium (Chloride) 100 mls @ 100 mls/hr IVPB Q8H [facility] Last Admin: 01/08/17 16:21 Dose: 100 mls/hr Potassium Chloride (Potassium Chloride 20 Meq/100 Ml) 100 mls @ 50 mls/hr IVPB ONCE ONE Stop: 01/08/17 18:01 Last Admin: 01/08/17 16:19 Dose: 50 mls/hr Multivit/Folic Acid/Iron () 1 tab PO DAILY [facility] - Labs Labs: 01/08/17 16:32 01/08/17 16:20 PT 12.0 SECONDS (9.7-12.2) 01/08/17 16:20 INR 1.1 01/08/17 16:20 APTT 26 SECONDS (21-34) 01/08/17 16:20
[2017-01-08] MEDS: Potassium Chloride 20 mEq 100 ML IVPB SCH ×2 (18:08→20:05)
[2017-01-08 22:22] LABS: CHLORIDE 101 mmol/L (98-107); POTASSIUM 3.3 mmol/L (3.6-5.2); SODIUM 131 mmol/L (132-148)
[2017-01-08 22:25] LABS: CARBON DIOXIDE 17 mmol/L (22-30); GFR AFRICAN-AMERICAN > 60
[2017-01-08 22:26] LABS: BLOOD UREA NITROGEN 2 mg/dL (7-17); CALCIUM 7.7 mg/dl (8.6-10.4); GLUCOSE,RANDOM 176 mg/dL (65-105)
[2017-01-09 06:47] LABS: BASO % 0.2 % (0.0-2.0); EOS # 0.1 K/uL (0.0-0.7); EOS % 0.4 % (0.0-4.0); HEMATOCRIT 24.4 % (34.0-47.0); LYMPH # 2.2 K/uL (1.0-4.3); LYMPH % 14.3 % (20.0-40.0); MAGNESIUM 1.3 mg/dL (1.6-2.3); MEAN CELL VOLUME 84.1 fL (81.0-99.0); MEAN CORPUSCULAR HEMOGLOBIN 28.6 pg (27.0-31.0); MEAN PLATELET VOLUME 8.2 fL (7.2-11.7); MONO # 1.4 K/uL (0.0-0.8); MONO % 9.1 % (0.0-10.0); NRBC % 0.2 % (0.0-2.0); RED CELL DISTRIBUTION WIDTH 14.5 % (11.5-14.5); WHITE BLOOD COUNT 15.6 K/uL (4.8-10.8)
[2017-01-09 06:51] LABS: ALB/GLOB RATIO 0.8 (1.0-2.1); ALKALINE PHOSPHATASE 107 U/L (38-126); ALT/SGPT 23 U/L (9-52); AST/SGOT 35 U/L (14-36); BILIRUBIN,TOTAL 0.9 mg/dL (0.2-1.3); BLOOD UREA NITROGEN 3 mg/dL (7-17); CALCIUM 7.9 mg/dl (8.6-10.4); CARBON DIOXIDE 19 mmol/L (22-30); CHLORIDE 103 mmol/L (98-107); GFR AFRICAN-AMERICAN > 60; GLUCOSE,RANDOM 82 mg/dL (65-105); PHOSPHOROUS 2.9 mg/dL (2.5-4.5); POTASSIUM 3.5 mmol/L (3.6-5.2); TOTAL PROTEIN 5.9 g/dL (6.3-8.3)
[2017-01-09 07:00] LABS: SODIUM 135 mmol/L (132-148)
[2017-01-09] MEDS: Meropenem 1 GM in Sodium Chloride 0.9% 100 ML IVPB SCH ×3 (07:24→23:22)
--- NOTE | 2017-01-09 07:58 | PCM.URO ---
Urology Progress Note - General General: No Complaints - Subjective Abdominal Pain: No Flank Pain: Yes (MILD) Fever & Chills: Yes (MILD FEVER) - Objective Lab Results Last 24 Hours: Laboratory Results - last 24 hr 01/08/17 01/08/17 01/08/17 08:16 11:30 16:00 WBC RBC Hgb Hct MCV MCH MCHC RDW Plt Count MPV Neut % (Auto) Lymph % (Auto) [place] % (Auto) Eos % (Auto) Baso % (Auto) Neut # Lymph # [place] # Eos # Baso # PT INR APTT pO2 24 L VBG pH 7.44 H VBG pCO2 30 L VBG HCO3 21.4 VBG Total CO2 21.3 L VBG O2 Sat (Calc) 55.1 VBG Base Excess -2.7 L VBG Potassium 3.1 L Glucose 98 Lactate 1.9 Sodium 135 137.0 Potassium 2.5 L* Chloride 100 111.0 H Carbon Dioxide 21 L Anion Gap 17 BUN 5 L Creatinine 0.7 Est GFR ( Amer) > 60 Est GFR (Non-Af Amer) > 60 Random Glucose 105 Lactic Acid 2.7 H Calcium 8.5 L Phosphorus Magnesium Total Bilirubin 1.1 AST 21 ALT 18 Alkaline Phosphatase 101 Total Protein 6.3 Albumin 2.9 L Globulin 3.4 Albumin/Globulin Ratio 0.8 L Venous Blood Potassium 3.1 L Blood Type Antibody Screen 01/08/17 01/08/17 01/08/17 16:20 16:32 22:05 WBC 16.1 H RBC 3.07 L Hgb 8.6 L Hct 25.6 L MCV 83.2 MCH 28.0 MCHC 33.7 RDW 14.2 Plt Count 158 MPV 7.9 Neut % (Auto) 81.8 H Lymph % (Auto) 10.1 L [place] % (Auto) 7.5 Eos % (Auto) 0.2 Baso % (Auto) 0.4 Neut # 13.2 H Lymph # 1.6 [place] # 1.2 H Eos # 0.0 Baso # 0.1 PT 12.0 INR 1.1 APTT 26 pO2 VBG pH VBG pCO2 VBG HCO3 VBG Total CO2 VBG O2 Sat (Calc) VBG Base Excess VBG Potassium Glucose Lactate Sodium 135 131 L Potassium 3.2 L 3.3 L Chloride 101 101 Carbon Dioxide 19 L 17 L Anion Gap 18 16 BUN 4 L 2 L Creatinine 0.7 0.6 L Est GFR ( Amer) > 60 > 60 Est GFR (Non-Af Amer) > 60 > 60 Random Glucose 96 176 H Lactic Acid Calcium 8.3 L 7.7 L Phosphorus 2.5 Magnesium 1.4 L Total Bilirubin AST ALT Alkaline Phosphatase Total Protein Albumin Globulin Albumin/Globulin Ratio Venous Blood Potassium Blood Type O POSITIVE Antibody Screen Negative 01/09/17 06:30 WBC 15.6 H RBC 2.91 L Hgb 8.3 L Hct 24.4 L MCV 84.1 MCH 28.6 MCHC 34.0 RDW 14.5 Plt Count 160 MPV 8.2 Neut % (Auto) 76.0 H Lymph % (Auto) 14.3 L [place] % (Auto) 9.1 Eos % (Auto) 0.4 Baso % (Auto) 0.2 Neut # 11.8 H Lymph # 2.2 [place] # 1.4 H Eos # 0.1 Baso # 0.0 PT INR APTT pO2 VBG pH VBG pCO2 VBG HCO3 VBG Total CO2 VBG O2 Sat (Calc) VBG Base Excess VBG Potassium Glucose Lactate Sodium 135 Potassium 3.5 L Chloride 103 Carbon Dioxide 19 L Anion Gap 17 BUN 3 L Creatinine 0.4 L Est GFR ( Amer) > 60 Est GFR (Non-Af Amer) > 60 Random Glucose 82 Lactic Acid Calcium 7.9 L Phosphorus 2.9 Magnesium 1.3 L Total Bilirubin 0.9 AST 35 ALT 23 Alkaline Phosphatase 107 Total Protein 5.9 L Albumin 2.6 L Globulin 3.2 Albumin/Globulin Ratio 0.8 L Venous Blood Potassium Blood Type Antibody Screen Intake & Output: Intake & Output 01/08/17 01/09/17 01/09/17 18:59 06:59 18:59 Intake Total 950 3290 150 Output Total 1000 3950 Balance -50 -660 150 Weight 163 lb 2.273 oz Intake: Intake, IV Amount 950 2250 150 Left Hand 600 2100 150 Right Antecubital 200 Left Hand 150 150 Oral 1040 Output: Urine 1000 3950 Urethral ([place]) 1000 3950 Vital Signs: Vital Signs - 24 hr 01/08/17 01/08/17 01/08/17 12:10 16:00 16:45 Temperature 101.7 F H 99.8 F H 99.4 F Pulse Rate 115 H Respiratory 33 H Rate Blood Pressure 106/63 O2 Sat by Pulse 98 Oximetry 01/08/17 01/08/17 01/08/17 17:37 17:56 18:17 Temperature Pulse Rate 122 H 110 H 107 H Respiratory 25 H 25 H Rate Blood Pressure 99/60 L 91/47 L 96/52 L O2 Sat by Pulse 97 100 100 Oximetry 01/08/17 01/08/17 01/08/17 18:32 18:47 19:00 Temperature 99 F Pulse Rate 109 H 105 H 119 H Respiratory 28 H 30 H 18 Rate Blood Pressure 94/48 L 97/52 L 97/52 L O2 Sat by Pulse 100 100 97 Oximetry 01/08/17 01/08/17 01/08/17 19:02 19:32 20:00 Temperature 99.2 F Pulse Rate 123 H 124 H 124 H Respiratory 24 22 22 Rate Blood Pressure 88/52 L 97/50 L 97/50 L O2 Sat by Pulse 100 99 99 Oximetry 01/08/17 01/08/17 01/08/17 20:13 20:39 20:56 Temperature Pulse Rate 118 H 110 H 111 H Respiratory 28 H 32 H 24 Rate Blood Pressure 107/58 L 107/58 L O2 Sat by Pulse 99 99 99 Oximetry 01/08/17 01/08/17 01/08/17 21:00 21:39 22:00 Temperature Pulse Rate 115 H 111 H 118 H Respiratory 16 30 H 32 H Rate Blood Pressure 107/58 L 95/59 L 95/59 L O2 Sat by Pulse 100 99 100 Oximetry 01/08/17 01/08/17 01/08/17 22:39 23:00 23:39 Temperature Pulse Rate 117 H 116 H 115 H Respiratory 29 H 19 31 H Rate Blood Pressure 91/52 L 91/52 L 91/43 L O2 Sat by Pulse 99 99 99 Oximetry 01/09/17 01/09/17 01/09/17 00:00 00:39 01:00 Temperature 100.4 F H Pulse Rate 128 H 115 H 115 H Respiratory 17 28 H 30 H Rate Blood Pressure 91/43 L 82/43 L 82/43 L O2 Sat by Pulse 99 98 99 Oximetry 01/09/17 01/09/17 01/09/17 01:10 01:39 02:00 Temperature Pulse Rate 115 H 115 H 120 H Respiratory 25 H 26 H 28 H Rate Blood Pressure 97/46 L 101/52 L 101/52 L O2 Sat by Pulse 99 99 Oximetry 01/09/17 01/09/17 01/09/17 02:39 03:00 03:39 Temperature Pulse Rate 114 H 117 H 118 H Respiratory 25 H 28 H 20 Rate Blood Pressure 94/48 L 94/48 L 96/46 L O2 Sat by Pulse 100 98 Oximetry 01/09/17 01/09/17 01/09/17 04:00 04:40 05:00 Temperature 100.2 F H Pulse Rate 123 H 121 H 121 H Respiratory 26 H 26 H 22 Rate Blood Pressure 96/46 L 93/40 L 93/40 L O2 Sat by Pulse 98 97 98 Oximetry 01/09/17 01/09/17 01/09/17 05:39 06:00 06:39 Temperature Pulse Rate 118 H 115 H 117 H Respiratory 15 25 H 20 Rate Blood Pressure 89/44 L 89/44 L 96/47 L O2 Sat by Pulse 98 99 Oximetry 01/09/17 01/09/17 01/09/17 07:00 07:39 07:41 Temperature Pulse Rate 118 H 120 H 115 H Respiratory 25 H 15 23 Rate Blood Pressure 91/53 L 96/47 L O2 Sat by Pulse 99 98 99 Oximetry - Physical Exam Abdominal Exam: Soft, Non-Tender, Non-Distended Back: No CVA Tenderness Urine Color: Clear, Yellow (MUCH CLEARER URINE, EXCELLENT OUTPUT) - Plan Intake & Output: Yes Additional Information: IMP: DOING WELL POST CYSTO, STENT INSERTION. IMPROVED RE HYPOTENSION AND RE PURULENT URINE. UTI/ UROSEPSIS. - Date & Time of Note Date: 01/09/17 Time: 07:58
--- NOTE | 2017-01-09 07:59 | CP.CCUPN ---
<EleniPedrojose - Last Filed: 01/09/17 12:19> CCU Subjective - Physician Review Subjective (Free Text): 01/09/17 08:06 Patient seen and examined in no acute distress . Patient has mild flank pain. She is tolerating a diet without complaints. Patient was febrile overnight. She denies headaches, chest pain, palpitations, chills, paresthesias, nausea, vomiting or diarrhea at this time. CCU Objective - Vital Signs / Intake & Output Vital Signs (Last 4 hours): Vital Signs Temp Pulse Resp BP Pulse Ox 01/09/17 07:41 115 H 23 96/47 L 99 01/09/17 07:39 120 H 15 91/53 L 98 01/09/17 07:00 118 H 25 H 99 01/09/17 06:39 117 H 20 96/47 L 01/09/17 06:00 115 H 25 H 89/44 L 99 01/09/17 05:39 118 H 15 89/44 L 98 01/09/17 05:00 121 H 22 93/40 L 98 01/09/17 04:40 121 H 26 H 93/40 L 97 01/09/17 04:00 100.2 F H 123 H 26 H 96/46 L 98 Intake and Output (Last 8hrs): Intake & Output 01/08/17 01/09/17 01/09/17 22:59 06:59 14:59 Intake Total 2390 1850 150 Output Total 2900 2050 Balance -510 -200 150 Weight 163 lb 2.273 oz Intake: Intake, IV Amount 1850 1350 150 Left Hand 1350 1350 150 Right Antecubital 200 Left Hand 300 Oral 540 500 Output: Urine 2900 2050 Urethral (Plascencia) 2900 2050 - Physical Exam Physical Exam Limitations: Negative for: Altered Mental Status, Clinical Condition Head: Positive for: Atraumatic, Normocephalic Pupils: Positive for: PERRL Extroacular Muscles: Positive for: EOMI Conjunctiva: Positive for: Normal Ears: Positive for: Normal Mouth: Positive for: Moist Mucous Membranes Neck: Positive for: Normal Range of Motion Respiratory/Chest: Positive for: Clear to Auscultation. Negative for: Respiratory Distress, Wheezes Cardiovascular: Positive for: Normal S1, S2 Abdomen: Positive for: Normal Bowel Sounds, Other (gravid abdomen). Negative for: Tenderness Upper Extremity: Negative for: Edema Lower Extremity: Positive for: NORMAL PULSES. Negative for: Edema, CALF TENDERNESS Neurological: Positive for: CN II-XII Intact, Speech Normal, Motor Func Grossly Intact Skin: Positive for: Warm, Normal Color Psychiatric: Positive for: Alert, Oriented x 3, Normal Insight, Normal Concentration - Medications Active Medications: Active Medications Generic Name Dose Route Start Last Admin Trade Name Freq PRN Reason Stop Dose Admin Acetaminophen 650 mg 01/07/17 11:03 01/08/17 12:10 Tylenol 325mg Tab PO 650 mg Q6 PRN Administration Fever >100.4 F Ceftriaxone Sodium 50 mls @ 100 mls/hr 01/07/17 11:15 01/08/17 11:13 Rocephin Iv 1 Gm Duplex IVPB 100 mls/hr DAILY SCOTTY Administration Meropenem 1 gm/ Sodium 100 mls @ 100 mls/hr 01/08/17 15:30 01/09/17 07:24 Chloride IVPB 100 mls/hr Q8H SCOT[facility] Administration Potassium Chloride 10 meq/ 1,005 mls @ 150 mls/hr 01/08/17 22:45 01/09/17 07:00 Lactated Ringer's IV 150 mls/hr .[id number] SCOTTY Administration Multivit/Folic Acid/Iron 1 tab 01/09/17 10:00 PO DAILY SCOTTY - Patient Studies Lab Studies: Microbiology Studies 01/07/17 11:30 Urine Culture - Final Urine,Clean Catch 50-100,000 CFU/ML. MULTIPLE SPECIES. SUGGEST REPEAT SPECIMEM. Lab Studies 01/09/17 01/08/17 01/08/17 Range/Units 06:30 22:05 16:32 WBC 15.6 H 16.1 H (4.8-10.8) K/uL RBC 2.91 L 3.07 L (3.80-5.20) Mil/uL Hgb 8.3 L 8.6 L (11.0-16.0) g/dL Hct 24.4 L 25.6 L (34.0-47.0) % MCV 84.1 83.2 (81.0-99.0) fL MCH 28.6 28.0 (27.0-31.0) pg MCHC 34.0 33.7 (33.0-37.0) g/dL RDW 14.5 14.2 (11.5-14.5) % Plt Count 160 158 (130-400) K/uL MPV 8.2 7.9 (7.2-11.7) fL Neut % (Auto) 76.0 H 81.8 H (50.0-75.0) % Lymph % (Auto) 14.3 L 10.1 L (20.0-40.0) % [place] % (Auto) 9.1 7.5 (0.0-10.0) % Eos % (Auto) 0.4 0.2 (0.0-4.0) % Baso % (Auto) 0.2 0.4 (0.0-2.0) % Neut # 11.8 H 13.2 H (1.8-7.0) K/uL Lymph # 2.2 1.6 (1.0-4.3) K/uL [place] # 1.4 H 1.2 H (0.0-0.8) K/uL Eos # 0.1 0.0 (0.0-0.7) K/uL Baso # 0.0 0.1 (0.0-0.2) K/uL PT (9.7-12.2) SECONDS INR APTT (21-34) SECONDS pO2 (30-55) mm/Hg VBG pH (7.32-7.43) VBG pCO2 (40-60) mmHg VBG HCO3 mmol/L VBG Total CO2 (22-28) mmol/L VBG O2 Sat (Calc) (40-65) % VBG Base Excess (0.0-2.0) mmol/L VBG Potassium (3.6-5.2) mmol/L Glucose (65-105) mg/dl Lactate (0.7-2.1) mmol/L Sodium 135 131 L (132-148) mmol/L Potassium 3.5 L 3.3 L (3.6-5.2) mmol/L Chloride 103 101 (98-107) mmol/L Carbon Dioxide 19 L 17 L (22-30) mmol/L Anion Gap 17 16 (10-20) BUN 3 L 2 L (7-17) mg/dL Creatinine 0.4 L 0.6 L (0.7-1.2) MG/DL Est GFR ( Amer) > 60 > 60 Est GFR (Non-Af Amer) > 60 > 60 Random Glucose 82 176 H (65-105) mg/dL Lactic Acid (0.7-2.1) mmol/L Calcium 7.9 L 7.7 L (8.6-10.4) mg/dl Phosphorus 2.9 (2.5-4.5) mg/dL Magnesium 1.3 L (1.6-2.3) mg/dL Total Bilirubin 0.9 (0.2-1.3) mg/dL AST 35 (14-36) U/L ALT 23 (9-52) U/L Alkaline Phosphatase 107 (38-126) U/L Total Protein 5.9 L (6.3-8.3) g/dL Albumin 2.6 L (3.5-5.0) g/dL Globulin 3.2 (2.2-3.9) gm/dL Albumin/Globulin Ratio 0.8 L (1.0-2.1) Venous Blood Potassium (3.6-5.2) mmol/L Blood Type Antibody Screen 01/08/17 01/08/17 01/08/17 Range/Units 16:20 16:00 11:30 WBC (4.8-10.8) K/uL RBC (3.80-5.20) Mil/uL Hgb (11.0-16.0) g/dL Hct (34.0-47.0) % MCV (81.0-99.0) fL MCH (27.0-31.0) pg MCHC (33.0-37.0) g/dL RDW (11.5-14.5) % Plt Count (130-400) K/uL MPV (7.2-11.7) fL Neut % (Auto) (50.0-75.0) % Lymph % (Auto) (20.0-40.0) % [place] % (Auto) (0.0-10.0) % Eos % (Auto) (0.0-4.0) % Baso % (Auto) (0.0-2.0) % Neut # (1.8-7.0) K/uL Lymph # (1.0-4.3) K/uL [place] # (0.0-0.8) K/uL Eos # (0.0-0.7) K/uL Baso # (0.0-0.2) K/uL PT 12.0 (9.7-12.2) SECONDS INR 1.1 APTT 26 (21-34) SECONDS pO2 24 L (30-55) mm/Hg VBG pH 7.44 H (7.32-7.43) VBG pCO2 30 L (40-60) mmHg VBG HCO3 21.4 mmol/L VBG Total CO2 21.3 L (22-28) mmol/L VBG O2 Sat (Calc) 55.1 (40-65) % VBG Base Excess -2.7 L (0.0-2.0) mmol/L VBG Potassium 3.1 L (3.6-5.2) mmol/L Glucose 98 (65-105) mg/dl Lactate 1.9 (0.7-2.1) mmol/L Sodium 135 137.0 (132-148) mmol/L Potassium 3.2 L (3.6-5.2) mmol/L Chloride 101 111.0 H (98-107) mmol/L Carbon Dioxide 19 L (22-30) mmol/L Anion Gap 18 (10-20) BUN 4 L (7-17) mg/dL Creatinine 0.7 (0.7-1.2) MG/DL Est GFR ( Amer) > 60 Est GFR (Non-Af Amer) > 60 Random Glucose 96 (65-105) mg/dL Lactic Acid 2.7 H (0.7-2.1) mmol/L Calcium 8.3 L (8.6-10.4) mg/dl Phosphorus 2.5 (2.5-4.5) mg/dL Magnesium 1.4 L (1.6-2.3) mg/dL Total Bilirubin (0.2-1.3) mg/dL AST (14-36) U/L ALT (9-52) U/L Alkaline Phosphatase (38-126) U/L Total Protein (6.3-8.3) g/dL Albumin (3.5-5.0) g/dL Globulin (2.2-3.9) gm/dL Albumin/Globulin Ratio (1.0-2.1) Venous Blood Potassium 3.1 L (3.6-5.2) mmol/L Blood Type O POSITIVE Antibody Screen Negative 01/08/17 Range/Units 08:16 WBC (4.8-10.8) K/uL RBC (3.80-5.20) Mil/uL Hgb (11.0-16.0) g/dL Hct (34.0-47.0) % MCV (81.0-99.0) fL MCH (27.0-31.0) pg MCHC (33.0-37.0) g/dL RDW (11.5-14.5) % Plt Count (130-400) K/uL MPV (7.2-11.7) fL Neut % (Auto) (50.0-75.0) % Lymph % (Auto) (20.0-40.0) % [place] % (Auto) (0.0-10.0) % Eos % (Auto) (0.0-4.0) % Baso % (Auto) (0.0-2.0) % Neut # (1.8-7.0) K/uL Lymph # (1.0-4.3) K/uL [place] # (0.0-0.8) K/uL Eos # (0.0-0.7) K/uL Baso # (0.0-0.2) K/uL PT (9.7-12.2) SECONDS INR APTT (21-34) SECONDS pO2 (30-55) mm/Hg VBG pH (7.32-7.43) VBG pCO2 (40-60) mmHg VBG HCO3 mmol/L VBG Total CO2 (22-28) mmol/L VBG O2 Sat (Calc) (40-65) % VBG Base Excess (0.0-2.0) mmol/L VBG Potassium (3.6-5.2) mmol/L Glucose (65-105) mg/dl Lactate (0.7-2.1) mmol/L Sodium 135 (132-148) mmol/L Potassium 2.5 L* (3.6-5.2) mmol/L Chloride 100 (98-107) mmol/L Carbon Dioxide 21 L (22-30) mmol/L Anion Gap 17 (10-20) BUN 5 L (7-17) mg/dL Creatinine 0.7 (0.7-1.2) MG/DL Est GFR ( Amer) > 60 Est GFR (Non-Af Amer) > 60 Random Glucose 105 (65-105) mg/dL Lactic Acid (0.7-2.1) mmol/L Calcium 8.5 L (8.6-10.4) mg/dl Phosphorus (2.5-4.5) mg/dL Magnesium (1.6-2.3) mg/dL Total Bilirubin 1.1 (0.2-1.3) mg/dL AST 21 (14-36) U/L ALT 18 (9-52) U/L Alkaline Phosphatase 101 (38-126) U/L Total Protein 6.3 (6.3-8.3) g/dL Albumin 2.9 L (3.5-5.0) g/dL Globulin 3.4 (2.2-3.9) gm/dL Albumin/Globulin Ratio 0.8 L (1.0-2.1) Venous Blood Potassium (3.6-5.2) mmol/L Blood Type Antibody Screen Laboratory Results - last 24 hr 01/08/17 01/08/17 01/08/17 08:16 11:30 16:00 WBC RBC Hgb Hct MCV MCH MCHC RDW Plt Count MPV Neut % (Auto) Lymph % (Auto) [place] % (Auto) Eos % (Auto) Baso % (Auto) Neut # Lymph # [place] # Eos # Baso # PT INR APTT pO2 24 L VBG pH 7.44 H VBG pCO2 30 L VBG HCO3 21.4 VBG Total CO2 21.3 L VBG O2 Sat (Calc) 55.1 VBG Base Excess -2.7 L VBG Potassium 3.1 L Glucose 98 Lactate 1.9 Sodium 135 137.0 Potassium 2.5 L* Chloride 100 111.0 H Carbon Dioxide 21 L Anion Gap 17 BUN 5 L Creatinine 0.7 Est GFR ( Amer) > 60 Est GFR (Non-Af Amer) > 60 Random Glucose 105 Lactic Acid 2.7 H Calcium 8.5 L Phosphorus Magnesium Total Bilirubin 1.1 AST 21 ALT 18 Alkaline Phosphatase 101 Total Protein 6.3 Albumin 2.9 L Globulin 3.4 Albumin/Globulin Ratio 0.8 L Venous Blood Potassium 3.1 L Blood Type Antibody Screen 01/08/17 01/08/17 01/08/17 16:20 16:32 22:05 WBC 16.1 H RBC 3.07 L Hgb 8.6 L Hct 25.6 L MCV 83.2 MCH 28.0 MCHC 33.7 RDW 14.2 Plt Count 158 MPV 7.9 Neut % (Auto) 81.8 H Lymph % (Auto) 10.1 L [place] % (Auto) 7.5 Eos % (Auto) 0.2 Baso % (Auto) 0.4 Neut # 13.2 H Lymph # 1.6 [place] # 1.2 H Eos # 0.0 Baso # 0.1 PT 12.0 INR 1.1 APTT 26 pO2 VBG pH VBG pCO2 VBG HCO3 VBG Total CO2 VBG O2 Sat (Calc) VBG Base Excess VBG Potassium Glucose Lactate Sodium 135 131 L Potassium 3.2 L 3.3 L Chloride 101 101 Carbon Dioxide 19 L 17 L Anion Gap 18 16 BUN 4 L 2 L Creatinine 0.7 0.6 L Est GFR ( Amer) > 60 > 60 Est GFR (Non-Af Amer) > 60 > 60 Random Glucose 96 176 H Lactic Acid Calcium 8.3 L 7.7 L Phosphorus 2.5 Magnesium 1.4 L Total Bilirubin AST ALT Alkaline Phosphatase Total Protein Albumin Globulin Albumin/Globulin Ratio Venous Blood Potassium Blood Type O POSITIVE Antibody Screen Negative 01/09/17 06:30 WBC 15.6 H RBC 2.91 L Hgb 8.3 L Hct 24.4 L MCV 84.1 MCH 28.6 MCHC 34.0 RDW 14.5 Plt Count 160 MPV 8.2 Neut % (Auto) 76.0 H Lymph % (Auto) 14.3 L [place] % (Auto) 9.1 Eos % (Auto) 0.4 Baso % (Auto) 0.2 Neut # 11.8 H Lymph # 2.2 [place] # 1.4 H Eos # 0.1 Baso # 0.0 PT INR APTT pO2 VBG pH VBG pCO2 VBG HCO3 VBG Total CO2 VBG O2 Sat (Calc) VBG Base Excess VBG Potassium Glucose Lactate Sodium 135 Potassium 3.5 L Chloride 103 Carbon Dioxide 19 L Anion Gap 17 BUN 3 L Creatinine 0.4 L Est GFR ( Amer) > 60 Est GFR (Non-Af Amer) > 60 Random Glucose 82 Lactic Acid Calcium 7.9 L Phosphorus 2.9 Magnesium 1.3 L Total Bilirubin 0.9 AST 35 ALT 23 Alkaline Phosphatase 107 Total Protein 5.9 L Albumin 2.6 L Globulin 3.2 Albumin/Globulin Ratio 0.8 L Venous Blood Potassium Blood Type Antibody Screen Review of Systems - Review of Systems Systems not reviewed;Unavailable: Language Barrier Review of Systems: as noted in subjective Critical Care Progress Note - Nutrition Nutrition: Nutrition Category Date Time Status Regular Diet [DIET] Diets 01/08/17 Dinner Active Assessment/Plan - Assessment and Plan (Free Text) Assessment: 26yo at 28wks presenting with pyelonephritis. Transferred to ICU for close monitoring after code sepsis called on 01/08/17. Pt s/p cystoscopy with ureteral stent placement on 01/08/17. Plan: Neuro: AAOX3 No gross neurological deficits CVS: Hypotensive (94/47) Intermittently tachycardic Monitor VS Resp: Initial VBG: pCO2 30, pO2 24, HCO3 21.4 Lactic acid: last reading was 1.9 on 01/08 GI: Maintain euglycemia : 28 wks UTI - abx as below B/L nephrolithiasis with mild b/l hydronephrosis likely secondary to pyelonephritis Urology (Dr. Shantal Walker) consulted - help appreciated s/p cystoscopy with ureteral stent placement 01/08.- Good urine output. F/U recommendations 01/07/17 OB U/S: Thirty week intrauterine gestation. Anatomic survey not performed. 01/07/17 Renal U/S: Bilateral renal calculi with mild bilateral hydronephrosis. Note that the possibility of pyelonephritis cannot be excluded. UA (01/07/17): protein 1+, ketones 2+, blood 2+, nitrates +, Leuk est 3+, WBCs 206, RBCs 13, sq epith cells 62, bacteria Occ BUN/Cr: 5.0/0.7 IVF: D5LR @125mls/hr IV, LR@150mls/hr IV heart monitoring Q 6 hours and NST Q12 while in ICU and medical floor per OBGYN team Heme: Leukocytosis downtrending (WBC 15.6) Anemia (Hgb 8.3) stable Hypokalemia and Hypomagnesemia- repleted. ID: febrile in the morning, resolved Leukocytosis downtrending (WBC 15.6) No bandemia reported Repeat UC. Initial UC was contaminated ID (Dr. Fierro) on the case - help appreciated Ceftriaxone 1g IVP daily - Day #2 Meropenem 1gm IVPB Q8H - Day #1 Prophylaxis: SCDs Acetaminophen 650mg PO Q6h prn Fever >100.4 No GI prophylaxis indicated at this time Disp: Patient is clinically improved and stable for transfer back to Maternity floor for continued care. <Guillermo Tony - Last Filed: 02/18/17 12:44> Critical Care Progress Note - Nutrition Nutrition: Nutrition Category Date Time Status Regular Diet [DIET] Diets 01/08/17 Dinner Active Attending/Attestation - Attestation I have personally seen and examined this patient.: Yes I have fully participated in the care of the patient.: Yes I have reviewed all pertinent clinical information: Yes Notes (Text): Patient is clinically improved and stable for transfer back to Maternity floor for continued care.
[2017-01-09] MEDS ORDERED: Potassium Chloride 20 mEq ER Tab PO ONE (08:15)
[2017-01-09] MEDS: Prenatal Multivit/Folic Acid/Iron Tab PO SCH (09:16)
[2017-01-09] MEDS: cefTRIAXone IV 1 gm in Dextros 50 ML IVPB SCH (09:16)
--- NOTE | 2017-01-09 18:09 | CP.PCM.CON ---
History of Present Illness - History of Present Illness History of Present Illness: 26 year old at 28 weeks gestation presents to [facility] with complaints of left CVA pain which started the night before. ID was consulted and Meropenem was added patient became hypotensive and febrile despite being administered Tylenol. [employer] and code sepsis were called and the patient was transferred to ICU for close monitoring. Underwent stenting all cultures neg Pt now stable and on reg maternity floor PMH: history of at least two UTIs with current Surgical Hx: none FamHx: unknown Meds: vitamins All: NKDA Social Hx: Denies tobacco, ETOH, illicit drug use Review of Systems - Constitutional Constitutional: As Per HPI - EENT Eyes: absent: As Per HPI, Blind Spots, Blurred Vision, Change in Vision, Decreased Night Vision, Diplopia, Discharge, Dry Eye, Exophthalmos, Floaters, Irritation, Itchy Eyes, Loss of Peripheral Vision, Pain, Photophobia, Requires Corrective Lenses, Sees Flashes, Spots in Vision, Tunnel Vision, Other Visual Disturbances, Loss of Vision, Other Ears: absent: As Per HPI, Decreased Hearing, Ear Discharge, Ear Pain, Tinnitus, Abnormal Hearing, Disequilibrium, Dizziness, Other Nose/Mouth/Throat: absent: As Per HPI, Epistaxis, Nasal Congestion, Nasal Discharge, Nasal Obstruction, Nasal Trauma, Nose Pain, Post Nasal Drip, Sinus Pain, Sinus Pressure, Bleeding Gums, Change in Voice, Dental Pain, Dry Mouth, Dysphagia, Halitosis, Hoarsness, Lip Swelling, Mouth Lesions, Mouth Pain, Odynophagia, Sore Throat, Throat Swelling, Tongue Swelling, Facial Pain, Neck Pain, Neck Mass, Other - Breasts Breasts: absent: As Per HPI, Change in Shape, Mass, Pain, Nipple Discharge, Nipple Inversion, Skin Changes, Swelling, Other - Cardiovascular Cardiovascular: absent: As Per HPI, Acrocyanosis, Chest Pain, Chest Pain at Rest , Chest Pain with Activity, Claudication, Diaphoresis, Dyspnea, Dyspnea on Exertion, Edema, Irregular Heart Rhythm, Pain Radiating to Arm/Neck/Jaw, Leg Edema, Leg Ulcers, Lightheadedness, Orthopnea, Palpitations, Paroxysmal Nocturnal Dyspnea, Pedal Edema, Radiating Pain, Rapid Heart Rate, Slow Heart Rate, Syncope, Other - Respiratory Respiratory: absent: As Per HPI, Cough, Dyspnea, Hemoptysis, Dyspnea on Exertion , Wheezing, Snoring, Stridor, Pain on Inspiration, Chest Congestion, Excessive Mucous Production, Change in Mucous Color, Pain with Coughing, Other - Gastrointestinal Gastrointestinal: absent: As Per HPI, Abdominal Pain, Belching, Bloating, Change in Bowel Habits, Change in Stool Character, Coffee Ground Emesis, Constipation, Cramping, Diarrhea, Dyspepsia, Dysphagia, Early Satiety, Excessive Flatus, Fecal Incontinence, Heartburn, Hematemesis, Hematochezia, Loose Stools, Melena, Nausea, Odynophagia, Temesmus, Vomiting, Other - Genitourinary Genitourinary: As Per HPI - Reproductive: Female Reproductive:Female: absent: As Per HPI, Amenorrhea, Amenorrhea/ Control, Currently Menstual, Cycle <21 Days, Cycle >35 Days, Cycle Variable, Menses 1-7 Days, Menses >/= 8 Days, Menses Variable, Cycle > 4 Weeks Between, No Menses for 6 Months, Heavy Menses, Light Menses, Normal Menses, Spotting Between Cycles , S/P Hysterectomy, Menopausal, Post Menopausal, Premenarche, Abnormal Vaginal Bleeding, Dysmenorrhea, Dyspareunia, Genital Lesions, Genital Pruritis, Pelvic Pain, Prolapse Symptoms, Sexual Dysfunction, Vaginal Discharge, Vaginal Dryness , Vaginal Odor, Vaginal Pruritis, Other - Menstruation Menstruation: absent: As Per HPI, Amenorrhea, Amenorrhea/ Control, Currently Menstual, Cycle <21 Days, Cycle >35 Days, Cycle Variable, Menses 1-7 Days, Menses >/= 8 Days, Menses Variable, Cycle > 4 Weeks Between, No Menses for 6 Months, Heavy Menses, Light Menses, Normal Menses, Spotting Between Cycles , S/P Hysterectomy, Menopausal, Post Menopausal, Premenarche, Abnormal Vaginal Bleeding, Dysmenorrhea, Other - Musculoskeletal Musculoskeletal: absent: As Per HPI, Abnormal Gait, Arthralgias, Atrophy, Back Pain, Deformity, Joint Swelling, Limited Range of Motion, Loss of Height, Muscle Cramps, Muscle Weakness, Myalgias, Neck Pain, Numbness, Radiating Pain into Limb, Stiffness, Tingling, Other - Integumentary Integumentary: absent: As Per HPI, Acne, Alopecia, Bleeding Lesions, Change in Hair, Change in Nails, Change in Pigmentation, Changing Lesions, Dry Skin, Erythema, Furuncle, Hirsutism, Lesions, New Lesions, Non-Healing Lesions, Photosensitivity, Pruritus, Rash, Skin Pain, Skin Ulcer, Sores, Striae, Swelling , Unusual Bruising, Wounds, Jaundice, Other - Neurological Neurological: absent: As Per HPI, Abnormal Gait, Abnormal Hearing, Abnormal Movements, Abnormal Speech, Behavioral Changes, Burning Sensations, Confusion, Convulsions, Disequilibrium, Dizziness, Numbness, Focal Weakness, Frequent Falls , Headaches, Lack of Coordination, Loss of Vision, Memory Loss, Paresthesias, Radicular Pain, Restless Legs, Sensory Deficit, Syncope, Tingling, Tremor, Vertigo, Weakness, Other Visual Disturbances, Other - Psychiatric Psychiatric: absent: As Per HPI, Abnormal Sleep Pattern, Anhedonia, Anxiety, Auditory Hallucinations, Behavioral Changes, Change in Appetite, Change in Libido, Confusion, Depression, Difficulty Concentrating, Hallucinations, Homicidal Ideation, Hopelessness, Irritability, Memory Loss, Mood Swings, Panic Attacks, Paranoia, Suicidal Ideation, Visual Hallucinations, Tactile Hallucinations, Other - Endocrine Endocrine: absent: As Per HPI, Change in Body Appearance, Change in Libido, Cold Intolorance, Deepening of Voice, Excessive Sweating, Fatigue, Flushing, Heat Intolorance, Increase in Ring/Shoe/Hat Size, Palpitations, Polydipsia, Polyphagia, Polyuria, Other Past Patient History - Infectious Disease Hx of Infectious Diseases: None - Past Social History Smoking Status: Never Smoked - PSYCHIATRIC Hx Substance Use: No - SURGICAL HISTORY Hx Surgeries: No - ANESTHESIA Hx Anesthesia: No Meds Allergies/Adverse Reactions: Allergies Allergy/AdvReac Type Severity Reaction Status Date / Time No Known Allergies Allergy Verified 08/04/16 22:52 - Medications Medications: Current Medications Acetaminophen (Tylenol 325mg Tab) 650 mg PO Q6 PRN PRN Reason: Fever >100.4 F Last Admin: 01/08/17 12:10 Dose: 650 mg Ceftriaxone Sodium (Rocephin Iv 1 Gm Duplex) 50 mls @ 100 mls/hr IVPB DAILY [facility] Last Admin: 01/09/17 09:16 Dose: 100 mls/hr Meropenem 1 gm/ Sodium (Chloride) 100 mls @ 100 mls/hr IVPB Q8H [facility] Last Admin: 01/09/17 07:24 Dose: 100 mls/hr Potassium Chloride 10 meq/ (Lactated Ringer's) 1,005 mls @ 150 mls/hr IV .Q6H42M [facility] Last Admin: 01/09/17 17:48 Dose: 150 mls/hr Multivit/Folic Acid/Iron () 1 tab PO DAILY [facility] Last Admin: 01/09/17 09:16 Dose: 1 tab Physical Exam - Constitutional Appears: Non-toxic, No Acute Distress - Head Exam Head Exam: NORMOCEPHALIC - Eye Exam Eye Exam: PERRL. absent: Scleral icterus - ENT Exam ENT Exam: Mucous Membranes Dry, Normal External Ear Exam, Normal Oropharynx - Neck Exam Neck exam: Negative for: Lymphadenopathy, Thyromegaly - Respiratory Exam Respiratory Exam: Decreased Breath Sounds, Clear to Auscultation Bilateral - Cardiovascular Exam Cardiovascular Exam: REGULAR RHYTHM, +S1, +S2 - GI/Abdominal Exam GI & Abdominal Exam: Diminished Bowel Sounds, Distended, Soft. absent: Guarding , Rebound, Tenderness - Rectal Exam Rectal Exam: Deferred - Exam Exam: NORMAL INSPECTION - Extremities Exam Extremities exam: Positive for: pedal pulses present. Negative for: calf tenderness, pedal edema, tenderness - Back Exam Back exam: absent: CVA tenderness (L), CVA tenderness (R), paraspinal tenderness - Neurological Exam Neurological exam: Alert, CN II-XII Intact, Oriented x3, Reflexes Normal - Psychiatric Exam Psychiatric exam: Normal Mood - Skin Skin Exam: Dry, Intact Results - Vital Signs Recent Vital Signs: Last Vital Signs Temp 97.6 F 01/09/17 16:25 Pulse 114 H 01/09/17 16:25 Resp 18 01/09/17 16:25 BP 96/57 L 01/09/17 16:25 Pulse Ox 98 01/09/17 16:25 - Labs Result Diagrams: 01/09/17 06:30 01/09/17 06:30 Labs: Laboratory Results - last 24 hr 01/08/17 01/09/17 22:05 06:30 WBC 15.6 H RBC 2.91 L Hgb 8.3 L Hct 24.4 L MCV 84.1 MCH 28.6 MCHC 34.0 RDW 14.5 Plt Count 160 MPV 8.2 Neut % (Auto) 76.0 H Lymph % (Auto) 14.3 L [place] % (Auto) 9.1 Eos % (Auto) 0.4 Baso % (Auto) 0.2 Neut # 11.8 H Lymph # 2.2 [place] # 1.4 H Eos # 0.1 Baso # 0.0 Sodium 131 L 135 Potassium 3.3 L 3.5 L Chloride 101 103 Carbon Dioxide 17 L 19 L Anion Gap 16 17 BUN 2 L 3 L Creatinine 0.6 L 0.4 L Est GFR ( Amer) > 60 > 60 Est GFR (Non-Af Amer) > 60 > 60 Random Glucose 176 H 82 Calcium 7.7 L 7.9 L Phosphorus 2.9 Magnesium 1.3 L Total Bilirubin 0.9 AST 35 ALT 23 Alkaline Phosphatase 107 Total Protein 5.9 L Albumin 2.6 L Globulin 3.2 Albumin/Globulin Ratio 0.8 L Assessment & Plan (1) Threatened Status: Acute (2) Pyelonephritis affecting Status: Acute - Assessment and Plan (Free Text) Assessment: may need long course of antibiotics consider hi risk consult cont rx may de-escalate to rocephin if cultures negative after 72h
--- NOTE | 2017-01-10 07:42 | CON ---
DATE: 01/07/2017 Urology consultation requested by Dr. Mazariegos. Urology consultation filled by Dr. Shantal Walker. REASON FOR CONSULTATION: Urinary tract infection. The patient is a 26-year-old female admitted with left flank pain. The patient is in otherwise fair to good health. The patient presents with a several day history of left flank pain. There is no nausea or vomiting. The patient reports no hematuria. The patient was found to have pyuria. She had renal ultrasound, which demonstrated hydronephrosis an d urolithiasis. The patient voids with good urinary stream and good control. The patient is 29 weeks according to review of her chart and my discussion with the [employer]ILRO[employer] AUD[employer] a ttending. The patient has fair appetite. The patient lives with her . This is her first . PHYSICAL EXAMINATION: GENERAL: The patient is a well-developed, well-nourished, adult female. The patient is awake and al ert. VITAL SIGNS: Stable. See attached. ABDOMEN: Soft, nondistended. The patient has a gravid uterus. BACK: Mild left CVA tenderness. IMPRESSION: A 26-year-old female with urinary tract infection. Left pyelonephritis. Possible obstr uctive uropathy. The hydronephrosis may be the hydronephrosis of or hydronephrosis seconda ry to obstruction with stone. RECOMMENDATIONS AND PLAN: Urine culture. Antibiotic therapy. Hydration. Further therapy to follow according to patient's clinical course. If patient remains clinically well , we will avoid further urologic instrumentation at present. Hydration. Strain urine. Further therapy to follow according to patient's clinical course. Thank you for recommending the patient for urology consultation. Shantal Walker MD cc: [id number] TT: 01/10/2017 07:41:37 Confirmation # [id number] Dictation # [id number]
--- NOTE | 2017-01-10 07:55 | OP ---
PROCEDURE DATE: 01/08/2017 PREOPERATIVE DIAGNOSES: Urosepsis. Urinary tract infection. POSTOPERATIVE DIAGNOSES: Urosepsis. Urinary tract infection. Pyonephrosis. PROCEDURES: Cystoscopy. Left retrograde pyelogram. Insertion of left ureteral stent. OPERATING SURGEON: Dr. Shantal Walker. INDICATIONS: The patient was advised regarding the findings. The patient has developed shock this a fternoon. She was transferred to the ICU. The patient received antibiotic therapy and hydration for urosepsis. The patient was advised regarding the findings and the options of therapy. The patient was advised r egarding the risks to herself and her baby with or without the planned therapy. The patient is advis ed regarding the risk of radiation therapy. DESCRIPTION OF PROCEDURE: The patient was placed in lithotomy position. Genitalia prepped and drape d sterilely. Antibiotic therapy had been administered. Procedure was performed under video endoscopic control as well as minimal fluoroscopic control. The patient was shielded from radiation therapy with the lead apron. The patient's lower abdomen and gravid uterus was shielded from therapy using lead aprons. With the patient in the lithotomy position under general anesthesia, the genitalia prepped and draped sterilely. A 22-Bangladeshi cystoscope sheath was introduced with obturator. Urine from the bladder was sent for yanet teriologic examination. There was noted to be a diffuse moderate cystitis. There was no bladder tumor or bladder stone. The left ureteral orifice was identified. A 0.035-inch guidewire was inserted into the left ureteral orifice. I first encountered obstruction at approximately 3 cm above the ureteral orifice. The guidewire was ____ inserted up to the level of the kidney. There was noted to be a brisk flow of pale white/white yellow purulent fluid around the ureteral guidewire. The guidewire was passed proximally as far as it would go. An open-ended catheter was inserted over the guidewire. The guidewire was removed. Cloudy urine was sent from the kidney for bacteriologic examination. Next, 3 mL of iodinated contrast dye was instilled via the open-ended catheter to delineate the colle cting system. Minimal fluoroscopic exposure was obtained. Urine from the kidney was sent for bacteriologic examina tion. The guidewire was reinserted. A 6-Bangladeshi multi-length stent was inserted over the guidewire. Proper stent position was confirmed within the kidney with fluoroscopy. Stent position was confirmed withi n the bladder to be properly positioned. Stent position within the bladder was confirmed with endosc opy. The guidewire had been removed. The stent was left in place. The bladder was drained. Cystoscope and sheath removed. A Plascencia catheter was inserted. There was c loudy, mildly purulent and turbid urine draining into the bladder. Total radiation exposure time was approximately 5 seconds. The patient was returned to the supine position. The patient tolerated the procedure without complic ation. The patient was transferred from the operating room in stable condition. The patient reporte d less pain already. Shantal Walker MD cc: [phone] TT: 01/10/2017 07:54:13 mn
[2017-01-10] MEDS: Meropenem 1 GM in Sodium Chloride 0.9% 100 ML IVPB SCH ×3 (08:59→23:56)
[2017-01-10 09:08] LABS: BASO % 0.2 % (0.0-2.0); EOS # 0.1 K/uL (0.0-0.7); HEMATOCRIT 26.7 % (34.0-47.0); LYMPH # 2.4 K/uL (1.0-4.3); LYMPH % 21.5 % (20.0-40.0); MEAN CELL VOLUME 82.4 fL (81.0-99.0); MEAN CORPUSCULAR HEMOGLOBIN 28.4 pg (27.0-31.0); MEAN CORPUSCULAR HGB CONC 34.5 g/dL (33.0-37.0); MONO # 1.3 K/uL (0.0-0.8); MONO % 11.7 % (0.0-10.0); NRBC % 0.2 % (0.0-2.0); RED CELL DISTRIBUTION WIDTH 14.6 % (11.5-14.5)
[2017-01-10] MEDS: cefTRIAXone IV 1 gm in Dextros 50 ML IVPB SCH (09:10)
[2017-01-10] MEDS: Prenatal Multivit/Folic Acid/Iron Tab PO SCH (09:12)
[2017-01-10 09:18] LABS: CHLORIDE 98 mmol/L (98-107)
[2017-01-10 09:19] LABS: POTASSIUM 3.4 mmol/L (3.6-5.2); SODIUM 134 mmol/L (132-148)
[2017-01-10 09:21] LABS: ALB/GLOB RATIO 0.8 (1.0-2.1); AST/SGOT 37 U/L (14-36); BILIRUBIN,TOTAL 0.7 mg/dL (0.2-1.3); BLOOD UREA NITROGEN 3 mg/dL (7-17); CARBON DIOXIDE 22 mmol/L (22-30); GFR AFRICAN-AMERICAN > 60; TOTAL PROTEIN 6.5 g/dL (6.3-8.3)
[2017-01-10 09:22] LABS: ALKALINE PHOSPHATASE 139 U/L (38-126); ALT/SGPT 24 U/L (9-52); CALCIUM 8.8 mg/dl (8.6-10.4); GLUCOSE,RANDOM 75 mg/dL (65-105)
[2017-01-11] MEDS: Meropenem 1 GM in Sodium Chloride 0.9% 100 ML IVPB SCH ×2 (07:46→15:21)
--- NOTE | 2017-01-11 09:03 | PCM.URO ---
Urology Progress Note - General General: No Complaints, Tolerating Diet - Subjective Abdominal Pain: No Flank Pain: No Nausea: No Vomiting: No Voiding Well: Yes Hematuria: No Stone Passed: No Dsypnea: No Chest Pain: No Fever & Chills: No - Objective Lab Studies: Reviewed Lab Results Last 24 Hours: Laboratory Results - last 24 hr 01/10/17 08:57 WBC 11.0 H RBC 3.25 L Hgb 9.2 L Hct 26.7 L MCV 82.4 MCH 28.4 MCHC 34.5 RDW 14.6 H Plt Count 227 MPV 8.0 Neut % (Auto) 65.6 Lymph % (Auto) 21.5 [place] % (Auto) 11.7 H Eos % (Auto) 1.0 Baso % (Auto) 0.2 Neut # 7.2 H Lymph # 2.4 [place] # 1.3 H Eos # 0.1 Baso # 0.0 Sodium 134 Potassium 3.4 L Chloride 98 Carbon Dioxide 22 Anion Gap 17 BUN 3 L Creatinine 0.5 L Est GFR ( Amer) > 60 Est GFR (Non-Af Amer) > 60 Random Glucose 75 Calcium 8.8 Total Bilirubin 0.7 AST 37 H ALT 24 Alkaline Phosphatase 139 H D Total Protein 6.5 Albumin 2.9 L Globulin 3.6 Albumin/Globulin Ratio 0.8 L Intake & Output: Intake & Output 01/10/17 01/11/17 01/11/17 18:59 06:59 18:59 Intake Total 125 Balance 125 Intake: Intake, IV Amount 125 Left Hand 125 Vital Signs: Vital Signs - 24 hr 01/10/17 01/11/17 16:45 00:00 Temperature 97.9 F 97.7 F Pulse Rate 100 H 78 Respiratory 20 20 Rate Blood Pressure 99/68 L 89/57 L O2 Sat by Pulse 99 97 Oximetry - Physical Exam Abdominal Exam: Soft, Non-Tender, Non-Distended Back: No CVA Tenderness - Plan Additional Information: IMP: DOING WELL. MUCH IMPROVED RE SEPSIS, SEPTIC SHOCK. REC/PLAN: STENT IN PLACE. ANTIBIOTIC RX. HYDRATION - Date & Time of Note Date: 01/11/17 Time: 09:03
--- NOTE | 2017-01-11 09:44 | RAD ---
PROCEDURE: Fluoroscopy up to 1 hr. HISTORY: LEFT STENT INSERTION/ SEVERE HYDRONEPHROSIS COMPARISON: None TECHNIQUE: Standard protocol for this study/examination. FINDINGS: Submitted images from the current procedure: 3.0. Total fluoroscopic time (continuous mode) utilized during the procedure: 5.6 seconds. IMPRESSION: Less than 1 hr fluoroscopic time utilized during performance of the procedure.
[2017-01-11] MEDS: Prenatal Multivit/Folic Acid/Iron Tab PO SCH (09:48)
[2017-01-11] MEDS: cefTRIAXone IV 1 gm in Dextros 50 ML IVPB SCH (09:50)
--- NOTE | 2017-01-11 16:21 | OBPN ---
Datetime: 01/11/2017 10:00 IP Progress Impression Other: Sepsis with pyelnophritis IP Informed Consent Obtain: Risks, Benefits and Alternatives Discussed IP Progress Plan: Continue present management; Antibiotic therapy FHR - Baseline A Provider: 140s Vital Signs Provider Details: Vitals checked by me: BP 99/62, Temp 97.4, HR 110 NICHD Variability Prov Fetus A: Moderate 6-25bpm NICHD Decel Fetus A IP Provider: None Datetime: 01/09/2017 17:18 Vital Signs Provider: Reviewed; Within Normal Limits Datetime: 01/08/2017 15:21 IP Progress Plan Other: to ICU IP Informed Consent Obtain Other: for cytoscopy with stenting with Dr. Walker Datetime: 01/08/2017 10:22 IP Progress Note Comment: S: Patient seen and examined at bedside. Complains of slight pain in the l eft flank. Denies nausea, vomiting, fevers but complains of slight chills. +fm, no ctx, no vaginal bl eeding and no fluid loss. O: Gen: NAD, sitting up in bed Heart: RRR Lungs: CTAB Abd: soft, nontender, nondistended Ext: no edema Skin: warm, dry, no rashes A/P: 26 year old at 28 weeks with pyelonephritis, leukocytosis with bandemia, hypotension and hypokalemia. 1. Continue IV Rocephin- Urology (Dr. Walker) on board 2. Continue Tylenol 650 mg po q6 prn fever 3. Replete Potassium with 20 mEq IV and 40 mEq po, recheck in 4 hours, repeat the above regimen an d recheck again until goal K is >3.6 4. Pt meets SIRS criteria with tachycardia and leukocytosis. Order blood cultures x 2 and check la ctic acid. 5. Last BP 99/58. Increase IVFluids to 150 cc's per hour for the next 4 hours and check BP eveyr h our for the next 4 hours. 6. Urine cx contaminated with multiple species and first urine shows contamination as well. Will s traight cath for clean urine culture. 7. If patient's pain worsens, consider Morphine 2 mg IVP q4 prn 8. Hgb went from 10 to 8- most likely due to dilutional effect of IV fluids. Monitor H_H Plan discussed with Attending Emma Morton, DO PGY3. Pt seen and examined with the Resident. Dr Mazariegos. Datetime: 01/07/2017 11:05 Contraction Comments Provider: none NICHD Accel Fetus A IP Provider: [id number] FHR Category Provider Fetus A: Category I Dilatation, Provider: 0 Effacement, Provider: 0 Station, Provider: =3
--- NOTE | 2017-01-11 16:23 | OBPN ---
Datetime: 01/08/2017 15:21 IP Progress Note Comment: S: Patient seen and examined at bedside. Still complains of pain in the le ft flank. Denies nausea, vomiting, but complains of fevers/chills. +fm, no ctx, no vaginal bleeding a nd no fluid loss. O: Gen: mild distress, laying down in bed Heart: RRR Lungs: CTAB Abd: soft, nontender, nondistended Ext: no edema Skin: very warm, dry, no rashes A/P: 26 year old at 28 weeks with sepsis from pyelonephritis, leukocytosis with bandemia, hyp otension and hypokalemia. 1. CERTIFIED SURGICAL TECH/FIRST ASSISTANT called for BP 72/35- IV fluids ran wide open and ABG shock panel ordered 2. Lactic acid returned at 2.7. 3. Will order ABG and transfer to ICU 4. Dr. Walker informed and will take patient to the OR for cystoscopy with stenting and limited X ray today- NPO since breakfast 5. Consulted ID- Dr. Fierro- will start Meropenem 500 mg IVPB q8 with 1 dose before the OR 6. Tylenol prn fever 7. Follow up CMP 8. Blood cx and repeat urine cx pending 9. Hgb went from 10 to 8- most likely due to dilutional effect of IV fluids. Monitor H_H Plan discussed with Attending Emma Morton DO PGY3. Seen and Discussed with Resident and agree with the management
--- NOTE | 2017-01-11 16:25 | OBPN ---
Datetime: 01/09/2017 17:18 IP Progress Note Comment: S: Patient seen and examined at bedside. Denies fevers,chills, nausea, vom iting, chest pain, flank pain. Ambulatory. Urinating normally. Denies frequency, urgency, dysuria. +f etal movement, no ctx no vaginal bleeding or loss of fluid. O: Gen: NAD, sitting in the chair Heart: tachycardic rate, regular rhythm Lungs: CTAB Abd: gravid, soft, nontender, nondistended Ext: trace edema Skin: warm, dry, no rashes NST done at 12: Cat 1, reassuring, HR 140's at baseline, no decels A/P: 26 year old at 28 weeks with sepsis from pyelonephritis, leukocytosis with bandemia, hyp otension and hypokalemia. 1. BP 90's/50's- continue LR at 150 2. Patient transferred back from ICU today 3. Dr. Walker- Urology- on board- s/p cystoscopy with sten placement in L kidney 4. ID- Dr. Fierro on board- continue Meropenem 500 mg IVPB q8 (day 2) and Rocephin 1 gm daily (day 3) 5. Tylenol prn fever 6. Repeat K 3.5 7. Blood cx and repeat urine cx negative 8. Hgb this AM- 8 9. Continue NST daily and heart ausculation q6 Plan discussed with Attending. Pt seen and discussed with Resident and agrees with above. Dr Delilah Morton, DO PGY3
--- NOTE | 2017-01-11 16:30 | OBPN ---
Datetime: 01/11/2017 10:00 IP Progress Note Comment: S: Patient seen and examined at bedside. Denies fevers,chills, nausea, vom iting, chest pain, flank pain. Ambulatory. Urinating normally. Denies frequency, urgency, dysuria. +f etal movement, no ctx no vaginal bleeding or loss of fluid. O: Gen: NAD, sitting in the chair Heart: tachycardic rate, regular rhythm Lungs: CTAB Abd: gravid, soft, nontender, nondistended Ext: trace edema Skin: warm, dry, no rashes NST done yesterday shows Cat 1 tracing and HR of 140's- today's NST pending A/P: 26 year old at 28 weeks with sepsis from pyelonephritis 1. BP checked by me 99/62- improved- continue LR at 150 2. Leukocytosis, bandemia and hypokalemia resolved 3. Dr. Walker- Urology- on board- s/p cystoscopy with sten placement in L kidney 4. ID- Dr. Fierro on board- continue Meropenem 500 mg IVPB q8 (day 4) and Rocephin 1 gm daily (day 5)- he states that if blood cultures are negative for 24 hours, she can be on just rocephin 5. Tylenol prn fever 6. Continue NST daily Plan discussed with Attending Emma Morton DO PGY3. Seen and discussed with Resident. Urine Culture results isolates E. Coli. Sensitive rocephin. Dr Mazariegos
--- NOTE | 2017-01-11 16:57 | OBPN ---
Datetime: 01/11/2017 16:47 IP Progress Impression Other: Sepsis with pyelonephritis, at 28 weeks IP Informed Consent Obtain: Risks, Benefits and Alternatives Discussed IP Progress Plan: Induction Membranes, Provider: Intact IP Progress Note Comment: Blood cultures have been negative for 72 hours. Will DC Meropenem as recom mended by ID (Dr. Fierro) Urine cx returned + for E Coli. As per discussion with ID (Dr. Fierro), freida lucas needs a total of 14 dyas of antibiotics. Her urine culture is not sensitive to any oral antibiot ics. Patient also has lamar care. She started Rocephin 1 gm IVPB daily on 01/07 and will continue it until 01/20. Will discuss with MFM about prophylaxis during the rest of the . Plan discussed with Attending Emma Morton DO PGY3 Seen and discussed with the resident and agrees with the above. Dr Mazariegos. Vital Signs Provider: Reviewed; Within Normal Limits
[2017-01-11] MEDS: Sodium Chloride 0.9% 1,000 ML IV SCH (17:29)
[2017-01-12] MEDS: Sodium Chloride 0.9% 1,000 ML IV SCH (04:16)
[2017-01-12] MEDS: Prenatal Multivit/Folic Acid/Iron Tab PO SCH (10:04)
[2017-01-12] MEDS: cefTRIAXone IV 1 gm in Dextros 50 ML IVPB SCH (10:05)
[2017-01-13] MEDS: Sodium Chloride 0.9% 1,000 ML IV SCH (03:48)
[2017-01-13] MEDS: Prenatal Multivit/Folic Acid/Iron Tab PO SCH (09:38)
[2017-01-13] MEDS: cefTRIAXone IV 1 gm in Dextros 50 ML IVPB SCH (09:40)
[2017-01-14] MEDS: Prenatal Multivit/Folic Acid/Iron Tab PO SCH (10:28)
[2017-01-14] MEDS: cefTRIAXone IV 1 gm in Dextros 50 ML IVPB SCH (10:29)
--- NOTE | 2017-01-14 10:58 | PCM.URO ---
Urology Progress Note - General General: No Complaints, Tolerating Diet - Subjective Abdominal Pain: No Flank Pain: No Nausea: No Voiding Well: Yes Dysuria: No Hematuria: No Fever & Chills: No - Objective Lab Studies: Reviewed Vital Signs: Vital Signs - 24 hr 01/13/17 01/14/17 16:00 08:42 Temperature 97.5 F L 97.7 F Pulse Rate 100 H 99 H Respiratory 20 16 Rate Blood Pressure 97/58 L O2 Sat by Pulse 99 100 Oximetry - Physical Exam Abdominal Exam: Soft, Non-Tender, Non-Distended Back: No CVA Tenderness - Plan Additional Information: IMP: PROGRESSING WELL. STENT IN PLACE. ANTIBIOIC RX. PT WILKL NEED OUTPT UROLOGIC F/U AND TREATMENT. DISCUSSED W STAFF AND W PT. - Date & Time of Note Date: 01/14/17 Time: 10:58
--- NOTE | 2017-01-15 00:04 | OBPN ---
Datetime: 01/12/2017 10:55 IP Progress Note Comment: S: Pt reports feeling well. Denies any fever or chills. Tolerating meals a nd voiding freely. Adequate pain control. O: Temp 98.1F, Afebrile,Abd: Soft ,NT, BS- present, Renal angles - Non tender B/L Assessment: IUP at 28wks with Pyelonephritis, On IV antbiotics, Clinically Stable Plan: Continue with the IV antibiotics Vital Signs Provider: Reviewed
--- NOTE | 2017-01-15 00:10 | OBPN ---
Datetime: 01/14/2017 09:30 IP Progress Note Comment: S: Pt reports feeling well, ambulating, tolerating meals. Feels good movement O: Afebrile, Abd: Soft NT, BS present FHR- 130s regular Assessment: IUP at 28wks Pyelonephritis on IV antibiotics Plan: Continue IV Antibiotics Re evaluate.
[2017-01-15] MEDS: Prenatal Multivit/Folic Acid/Iron Tab PO SCH (10:12)
[2017-01-15] MEDS: cefTRIAXone IV 1 gm in Dextros 50 ML IVPB SCH (10:12)
--- NOTE | 2017-01-15 11:16 | OBPN ---
Datetime: 01/15/2017 11:11 IP Progress Note Comment: S: Pt reports feeling well, Denies chills , fever or pain in the flanks. O: Temp- 98.2F, Chest - clinically clear Assessment: IUP at 29wks Pyelonephritis on IV antibiotics. Plan: IV antibiotics till Saturday, D/C Home on Augmentin on Saturday, Continue current management.am
[2017-01-16] MEDS: Prenatal Multivit/Folic Acid/Iron Tab PO SCH (10:31)
[2017-01-16] MEDS: cefTRIAXone IV 1 gm in Dextros 50 ML IVPB SCH (10:32)
--- NOTE | 2017-01-16 21:59 | OBPN ---
Datetime: 01/16/2017 14:08 IP Progress Note Comment: S; Pt reports feeling well, denies any fever or chills, ambulating and tamika erating meals po voiding freely O: afebrile, Temp 98.2F, Lungs-CTA B/L, Heart - S1S2 heard, RRR Abd: Soft,NT, BS- present. Fundal Height- 29cm, FHR- Regular Renal Angles- non tender Extremities- No calf tenderness B/L Assessment: IUP at 29wks Pyelonephritis on antibiotics Plan: Continue IV antibiotics Monitor Vital Signs. Discharge planning for Saturday.
[2017-01-17] MEDS: Prenatal Multivit/Folic Acid/Iron Tab PO SCH (10:02)
[2017-01-17] MEDS: cefTRIAXone IV 1 gm in Dextros 50 ML IVPB SCH (10:03)
[2017-01-18 08:36] VITALS: BP 88/50; PULSE 100; RESP 18; TEMP 97.6; O2SAT 97
[2017-01-18] MEDS: Prenatal Multivit/Folic Acid/Iron Tab PO SCH (09:59)
[2017-01-18] MEDS ORDERED: cefTRIAXone IV 1 gm in Dextros 50 ML IVPB SCH (10:00)
--- NOTE | 2017-01-18 10:33 | OBPN ---
Datetime: 01/17/2017 10:28 IP Progress Note Comment: S: Pt reports doing well, ambulating, Denies any fever or chills. O: Afebrile, Temp- normal, Lungs- CTA B/l Abd: Soft, NT, BS- Present Fundal Height- 29cm FHR- 145, regular Renal Angles- non tender. Assessment: IUP at 29wks Pyelonephritis on Antibiotics Plan: Continue treatment.
--- NOTE | 2017-01-18 10:41 | OBPN ---
Datetime: 01/18/2017 10:33 IP Progress Note Comment: S: Well, Denies fever and chills, No pains on the back O: Afebile., Temp- 98.3 Lungs - CTA- B/L, Heart- S1S2 heard, RRR Abd: Soft NT ,BS- present, no tenderness or palpable masses Fundal Heaight- 29cm, FHR 137, regular Assessment: IUP at 29wks Pyelonephritis s/p IV antbiotics for 10 days S/P Stent Placement in the left Kidney Clinically stable and afebrile Plan: D/c home on Augmentin F/U with Dr Mazariegos in 5 days F/U with Dr Walker( Urologist).
--- NOTE | 2017-01-18 10:45 | OBDCSUM ---
Datetime: 01/18/2017 10:39 Discharged to, Provider: Home Follow up at, Provider: Dr Mazariegos Disch Instr Diet: Regular Discharge Instructions, Provider: Routine instructions given Discharge Time: 01/18/2017 10:40 Follow up in weeks, Provider: 1 week Discharge Comment, Provider: IUP at 29wks, S/P IV antibiotic treatment for pyelonephritis, S/P Stent placement, Clinically Stable. Plan: Discharge home on Augmentin. F/U with Dr Mazariegos in 1 week' F/U with Dr Walker Continue with vitamins. Discharge Diagnosis Prov Other: IUP at 29wks, S/P IV antibiotic treatment for pyelonephritis, S/P St ent placement, Clinically Stable.
== END 2017-01-18 16:10 | disposition home or self-care (01) | DRG 886 ==
LOC: C.EROB 10:59 → C.4D 11:01 → C.9I 01-08 16:00 → C.4M 01-09 11:33 → C.4D 01-09 11:58 → C.4M 01-09 13:55
PROVIDERS: ADMIT Obstetrics & Gynecology; ATTEND Obstetrics & Gynecology
PROC: 0T778DZ Dilation of Left Ureter with Intraluminal Device, Via Natural or Artificial Opening Endoscopic (ICD-10-PCS; principal; 2017-01-08 17:30)
DX: O98.813 Other maternal infectious and parasitic diseases complicating pregnancy, third trimester (principal); R65.21 Severe sepsis with septic shock; A41.9 Sepsis, unspecified organism; N13.6 Pyonephrosis; O26.893 Other specified pregnancy related conditions, third trimester; E83.42 Hypomagnesemia; O99.013 Anemia complicating pregnancy, third trimester; E87.6 Hypokalemia; Z3A.28 28 weeks gestation of pregnancy

== ENCOUNTER 2017-03-25 09:41 | Inpatient (IN) | payer MEDICAID, OTHER ==
--- NOTE | 2017-03-25 10:33 | OBHP ---
Datetime: 03/25/2017 10:26 IP Adm Impression: Term, intrauterine ; Active labor; Ruptured Membranes IP Admit Plan: Admit to unit; Initiate labor protocol Admit Comment, IP Provider: at 38+weeks ccame with c/o srom started at 7 am with fluid coming a nd occ ctxs,no vb, +fm. obhx primi pmh de med pnv all nkda psh den soch den a/p at 38=weeks prom admit to l_d npo/ivf labs cont hilton and efm pitocin for augmentation anticipate Pelvic Type - PN: Adequate Extremities - PN: Normal Abdomen - PN: Normal Back - PN: Normal Breast - PN: Normal Lungs - PN: Normal Heart - PN: Normal Thyroid - PN: Normal Neurologic - PN: Normal HEENT - PN: Normal General - PN: Normal FHR - Baseline A Provider: 130 Contraction Comments Provider: occ Comments, ACOG Physical Exam: gravid,non tender ext no edema,no calf ten sse pooling+,+nitrazine ve 2/80/-2 IP Hx Assessment: The History has been Reviewed and is Current EGA AdmitDate IP: 38.6 Vital Signs Provider: Reviewed; Within Normal Limits IP Chief Complaint: Suspected ruptured membranes NICHD Variability Prov Fetus A: Moderate 6-25bpm NICHD Accel Fetus A IP Provider: [id number] FHR Category Provider Fetus A: Category I Dilatation, Provider: 2 Effacement, Provider: 70 Station, Provider: -2 Genitourinary Exam: Normal DTRs - PN: Normal Datetime: 01/11/2017 16:47 Membranes, Provider: Intact Datetime: 01/11/2017 10:00 Vital Signs Provider Details: Vitals checked by me: BP 99/62, Temp 97.4, HR 110 NICHD Decel Fetus A IP Provider: None Datetime: 01/07/2017 11:05 IP Indication for Induction: Other IP Indication for Induction Oth: pykonephrits
[2017-03-25 10:34] VITALS: BMI 29.5
[2017-03-25] MEDS ORDERED: Oxytocin 30 UNIT 30 UNITS/500 ML BAG IV PRN (10:36)
[2017-03-25] MEDS ORDERED: Nalbuphine 20 mg/ml Inj (1 ml) IVP PRN (10:45)
[2017-03-25] MEDS ORDERED: Lactated Ringer's 1,000 ML IV SCH (10:45)
[2017-03-25] MEDS ORDERED: Oxytocin 30 UNIT 0 UNITS/0 ML BAG IV ONE (11:04)
[2017-03-25] MEDS ORDERED: Oxytocin 30 UNIT 30 UNITS/500 ML BAG IV ONE ×2 (11:09→11:11)
[2017-03-25 11:18] LABS: BASO % 0.2 % (0.0-2.0); EOS # 0.1 K/uL (0.0-0.7); EOS % 0.8 % (0.0-4.0); HEMATOCRIT 32.8 % (34.0-47.0); LYMPH # 3.1 K/uL (1.0-4.3); MEAN CELL VOLUME 82.3 fL (81.0-99.0); MEAN CORPUSCULAR HEMOGLOBIN 27.8 pg (27.0-31.0); MEAN CORPUSCULAR HGB CONC 33.8 g/dL (33.0-37.0); MEAN PLATELET VOLUME 8.6 fL (7.2-11.7); MONO # 0.6 K/uL (0.0-0.8); MONO % 5.5 % (0.0-10.0); RED CELL DISTRIBUTION WIDTH 18.4 % (11.5-14.5); WHITE BLOOD COUNT 11.5 K/uL (4.8-10.8)
[2017-03-25 11:24] LABS: CHLORIDE 105 mmol/L (98-107); POTASSIUM 3.3 mmol/L (3.6-5.2); SODIUM 136 mmol/L (132-148)
[2017-03-25 11:26] LABS: GFR AFRICAN-AMERICAN > 60
[2017-03-25 11:27] LABS: ALKALINE PHOSPHATASE 192 U/L (38-126); ALT/SGPT 13 U/L (9-52); AST/SGOT 23 U/L (14-36); BILIRUBIN,TOTAL 0.9 mg/dL (0.2-1.3); BLOOD UREA NITROGEN 4 mg/dL (7-17); CALCIUM 8.8 mg/dl (8.6-10.4); CARBON DIOXIDE 20 mmol/L (22-30); GLUCOSE,RANDOM 74 mg/dL (65-105); TOTAL PROTEIN 7.4 g/dL (6.3-8.3)
[2017-03-25 11:31] LABS: ALB/GLOB RATIO 0.9 (1.0-2.1); RBC URINE 1798 /hpf (0-3); URINE BACTERIA MANY (<OCC); URINE BILIRUBIN NEGATIVE (NEGATIVE); URINE BLOOD 3+ (NEGATIVE); URINE COLOR Yellow (YELLOW); URINE GLUCOSE (UA) NORMAL (Normal); URINE KETONE NEGATIVE (NEGATIVE); URINE LEUKOCYTE ESTERASE 3+ Leu/uL (Negative); URINE PROTEIN 2+ mg/dL (NEGATIVE); URINE UROBILINOGEN NORMAL mg/dL (0.2-1.0); WBC CLUMPS MANY /hpf; WBC URINE 307 /hpf (0-5)
[2017-03-25] MEDS ORDERED: Bupivacaine 0.125%/FentaNYL 200 ML EPI ONE (15:37)
[2017-03-25] MEDS ORDERED: cefOXitin IV 2 gm in Dextrose 2 GM/50 ML BAG IVPB ONE ×3 (18:19→18:41)
[2017-03-25] MEDS ORDERED: Sodium Citrate/Citric Acid 15 ml Sol ONE (18:20)
[2017-03-25] MEDS ORDERED: Oxytocin 20 units in LR 2,000 ML IV ONE (18:20)
--- NOTE | 2017-03-25 18:21 | OBPN ---
Datetime: 03/25/2017 18:17 IP Progress Impression: Arrest of dilatation/descent IP Informed Consent Obtain: Section Delivery; Risks, Benefits and Alternatives Discussed IP Procedures: Sterile Vag Exam Contraction Comments Provider: q1-4 FHR - Baseline A Provider: 130 IP Progress Note Comment: pt was seen at bed side ve 2-3/70/-2, unchabged since am ptiocin 19 mu fhr 130 mod alecia with variable primary section called for failure to progress. r/a/b discussed. associate director regulatory affairs device used.pt understand and agrees NICHD Accel Fetus A IP Provider: [id number] FHR Category Provider Fetus A: Category I NICHD Variability Prov Fetus A: Moderate 6-25bpm Dilatation, Provider: 2-3 Effacement, Provider: 70 Station, Provider: -2 NICHD Decel Fetus A IP Provider: Variable Datetime: 03/25/2017 10:26 Vital Signs Provider: Reviewed; Within Normal Limits
[2017-03-25] MEDS ORDERED: Sodium Citrate/Citric Acid 15 ml Sol PO ONE (18:23)
[2017-03-25] MEDS ORDERED: Oxycodone/Acetaminophen 5/325 mg Tab PO PRN (18:27)
--- NOTE | 2017-03-25 18:30 | PCM.SURG1 ---
Surgeon's Initial Post Op Note - Surgeon's Notes Surgeon: dr stewart Infrastructure Project Manager: dr bell Type of Anesthesia: Spinal Anesthesia Administered By: dr herrera Pre-Operative Diagnosis: 26 yr at 39+weeks failure to progress Operative Findings: see the op report Post-Operative Diagnosis: same Operation Performed: primary section Specimen/Specimens Removed: fetus. placente. cord blood Estimated Blood Loss: EBL {In ML}: 1,000 Blood Products Given: N/A Drains Used: No Drains Post-Op Condition: Good Date of Surgery/Procedure: 03/25/17 Time of Surgery/Procedure: 20:00
[2017-03-25] MEDS ORDERED: Morphine 1 mg/ml preservative-free Inj(Duramorph) ONE (18:59)
[2017-03-25] MEDS ORDERED: Oxytocin 10 Units/ml Inj ONE (19:23)
--- NOTE | 2017-03-25 19:52 | OBDS ---
DELIVERY PERSONNEL Delivery Doctor: Sam Herrmann MD Anesthesiologist: Dr dinero MATERNAL INFORMATION Delivery Anesthesia: Epidural; Spinal Provider Comments: baby deliverd in theresa. endometrium clean. no complication. LABOR SUMMARY EDC: 04/02/2017 00:00 No. Babies in Womb: 1 Attempted: No Labor Anesthesia: Epidural LABOR INFORMATION Reason for Induction: Not Applicable Onset of Labor: 03/25/2017 08:00 Cervical Ripening Agents: Other Other Ripening Agents: na Oxytocin: Augmentation Group B Beta Strep: Negative Antibiotics # of Doses: 0 Antibiotics Time of Last Dose: 0 MEMBRANES Membranes Rupture Method: Spontaneous Rupture of Membranes: 03/25/2017 08:00 Amniotic Fluid Color: Light Meconium (Annotations: light mec stained fluid noted at this time.) Amniotic Fluid Amount: Moderate Amniotic Fluid Odor: Normal BABY A INFORMATION Forceps: N/A Vacuum Extraction: N/A Shoulder Dystocia : No PRESENTATION/POSITION BABY A Presentation: Cephalic Cephalic Presentation: Vertex Vertex Position: Left Occipital Anterior Breech Presentation: N/A CORD INFORMATION BABY A Nuchal Cord : N/A
[2017-03-25] MEDS ORDERED: DiphenhydrAMINE 50 mg/ml Inj IVP PRN (19:55)
[2017-03-25] MEDS ORDERED: HYDROmorphone 0.5 mg/0.5 ml ISec IVP PRN (19:55)
[2017-03-25] MEDS ORDERED: Dexamethasone 4 mg/1 ml IVP PRN (19:55)
[2017-03-25] MEDS ORDERED: HYDROmorphone 0.5 mg/0.5 ml ISec ONE (20:31)
[2017-03-25] MEDS: Simethicone 80 mg Chewtab PO SCH (22:57)
[2017-03-26 06:36] LABS: HEMATOCRIT 26.1 % (34.0-47.0); MEAN CELL VOLUME 82.4 fL (81.0-99.0); MEAN CORPUSCULAR HEMOGLOBIN 27.7 pg (27.0-31.0); MEAN CORPUSCULAR HGB CONC 33.5 g/dL (33.0-37.0); MEAN PLATELET VOLUME 8.5 fL (7.2-11.7); RED CELL DISTRIBUTION WIDTH 18.3 % (11.5-14.5); WHITE BLOOD COUNT 15.9 K/uL (4.8-10.8)
--- NOTE | 2017-03-26 07:37 | OBPPN ---
Datetime: 03/26/2017 07:30 PP Pain Prov: Within normal limits PP Nausea Prov: Denies PP Flatus Prov: No PP BM Prov: No PP Heart Prov: Normal PP Lungs Prov: Normal PP Abdomen/Uterus Prov: Normal PP Lochia Prov: Normal PP CVA Tenderness Prov: Normal PP Extremities Prov: Normal PP C/S Incision Prov: Normal PP Progress Prov: Normal PP Impression Prov: Normal progression PP Plan Prov: Continue present management PP Progress Note Prov: S-patient reports she has incisional pain when she moves in bed.Has not been out of bed so far..denies nausea, vomiting, headache, chest pain shortness of breath, numbness or tin gling in hands and feet O-VS temp 101.4 at 11.25 pm on 03/25/2016. Fundus firm and below umbilcius dressing clean, dry and intact Extremities no calf tenderness A/P Patient s/p csection pod 1.fever noted in first 6 hours of csection.patient s/p tylenol and af ebrile since then.Fever ?due to cytotec.Anemia noted on labs today -monitor vital signs closely. -out of bed -discontinue luz -advance diet -incentive spirometer -encourage ambulation and po fluid intake Vital Signs Provider PP: Reviewed Vital Signs Provider Details PP: temp 101.4 at 11.25 pm
--- NOTE | 2017-03-26 09:37 | OP ---
PROCEDURE DATE: 03/25/2017 PREOPERATIVE DIAGNOSES: A 26-year-old 1, para 0 at 39 weeks, premature rupture of membranes and failure to progress. POSTOPERATIVE DIAGNOSIS: A 26-year-old 1, para 0 at 39 weeks, premature rupture of membranes and failure to progress. SURGEON: Sam Herrmann M.D. [employer] MANAGER SURGEON: Dr. Mitchell, who was present throughout the surgery for retraction, exposure and pus ailin at the time of the delivery. ANESTHESIA: Spinal. ANESTHESIOLOGIST: Dr. Middleton. ESTIMATED BLOOD LOSS: 1000 mL. PROCEDURE: After informed consent was obtained, the patient was brought to the operating room and pl aced on the table where spinal anesthesia was given. When anesthesia was found to be ____, she was p repped and draped in normal sterile fashion, 2 cm above the pubic bone, a skin incision was made with a knife and the subcutaneous with a Bovie. The fascia was excised and extended on both sides using curved [place] scissors. Fascia was first at the site of the pubic bone then at the site of t he umbilicus. Rectus muscle was and the peritoneum excised. We went into the abdominal ca vity. The bladder blade was placed. Bladder flap was created. The rectus muscle was agai n, then bladder flap was created. Lower uterine segment incision was made and extended on both sides using curved [place] scissors. Baby delivered in an CAYLA position. Cord was clamped and cut and baby w as handed to the awaiting cellar worker. Placenta ____ and sent to pathology. The uterus ___ and the uterus was very boggy so extra uterus Pitocin was given and a lot of massage was done. Then the ___ _ was given. It was still boggy and a lot of massage was given. After that the ____ 1-0 Vicryl in r unning fashion and second layer closure with the same stitch. A lot of irrigation was ____ hemostati c. Uterus was returned back to abdominal cavity. It was hemostatic. No bleeding. Gutters were viktoriya ared of all the clots and debris. Peritoneum was ____ 2-0 Vicryl in nonlocking fashion. The muscle was ____ in nonlocking fashion. The fascia was closed using 1-0 Vicryl in ___ locking fashion. Subc utaneous ____ interrupted fashion. Skin was closed using francisco. The patient tolerated the procedu re well. Laps and ____ throughout the procedure. Now 200 mL of ____ and the clots were extracted a nd 1:100,000 ____ was placed. The patient tolerated the procedure well. Laps and instruments correc t x 2. Sam Herrmann MD cc: [id number] TT: 03/25/2017 21:37:14 03/26/2017 08:34:16
[2017-03-26] MEDS: Simethicone 80 mg Chewtab PO SCH ×4 (09:52→21:30)
[2017-03-26] MEDS: Oxycodone/Acetaminophen 5/325 mg Tab PO PRN ×3 (09:53→23:55)
[2017-03-26] MEDS ORDERED: Bisacodyl 5mg EC Tab PO ONE (18:28)
--- NOTE | 2017-03-27 08:16 | OBPPN ---
Datetime: 03/27/2017 08:13 PP Pain Prov: Within normal limits PP Nausea Prov: Denies PP Flatus Prov: No PP Abdomen/Uterus Prov: Normal PP Lochia Prov: Normal PP Extremities Prov: Normal PP C/S Incision Prov: Normal PP Comments Phys Exam Prov: fudus below umblicus ext no zuleyma,a,no calf ten c/s incision clean and dry PP Impression Prov: Normal progression PP Plan Prov: Continue present management PP Progress Note Prov: pt was seen at bedc side, pain under control,no n/v, tolerating deit,voiding, min lochia, flartus- pod$2 s/p c/s cont pain jose de jesus cont post op care envourage ambulation Vital Signs Provider PP: Reviewed; Within Normal Limits
[2017-03-27] MEDS: Simethicone 80 mg Chewtab PO SCH ×4 (09:41→21:52)
[2017-03-27] MEDS: Oxycodone/Acetaminophen 5/325 mg Tab PO PRN (17:12)
--- NOTE | 2017-03-28 08:30 | OBPPN ---
Datetime: 03/28/2017 08:27 PP Pain Prov: Within normal limits PP Nausea Prov: Denies PP Flatus Prov: Yes PP Heart Prov: Normal PP Lungs Prov: Normal PP Abdomen/Uterus Prov: Normal PP Lochia Prov: Normal PP CVA Tenderness Prov: Normal PP Extremities Prov: Normal PP C/S Incision Prov: Normal PP Progress Prov: Normal PP Impression Prov: Normal progression PP Plan Prov: Discharge PP Progress Note Prov: S-patient reports that she has adequate pain control.tolerating diet.denies a ny difficulty ambulating or voiding.denies nausea, vomiting, headace, chest pain, shortness of breath , numbness or tingling in hands and feet O-VSS Afebrile incision clean dry and intact Extremities no calf tenderness A/P Patient s/p csection pod 3 doing well -discharge today -follow up in clinic in 1 week for incision check Vital Signs Provider PP: Reviewed; Within Normal Limits
[2017-03-28 08:39] VITALS: BP 108/72; PULSE 74; RESP 18; TEMP 98.2; O2SAT 99
--- NOTE | 2017-03-28 08:42 | OBDCSUM ---
Datetime: 03/28/2017 08:40 Discharged to, Provider: Home Follow up at, Provider: obgyn clinic Disch Instr Diet: Regular Discharge Instructions, Provider: Routine instructions given Discharge Diagnosis, Provider: Term Delivered Discharge Time: 03/28/2017 08:40 Follow up in weeks, Provider: 1 week Disch Activity Restrictions: No exercising; No lifting; No driving; No sexual activity; Nothing in v agina - [place], tampons, douche Discharge Comment, Provider: go to er if you have severe pain, heavy bleeding, any discharge from in csion or any other problems Discharge Diagnosis Prov Other: s/p csection
[2017-03-28] MEDS: Simethicone 80 mg Chewtab PO SCH ×2 (10:04→16:06)
== END 2017-03-28 16:25 | disposition home or self-care (01) | DRG 766 ==
LOC: C.EROB 09:41 → C.4D 10:34 → C.4M 22:30
PROVIDERS: ADMIT Obstetrics & Gynecology; ATTEND Obstetrics & Gynecology
PROC: 10D00Z1 Extraction of Products of Conception, Low, Open Approach (ICD-10-PCS; principal; 2017-03-25)
DX: O42.02 Full-term premature rupture of membranes, onset of labor within 24 hours of rupture (principal); O62.1 Secondary uterine inertia; O99.02 Anemia complicating childbirth; O77.0 Labor and delivery complicated by meconium in amniotic fluid; Z3A.38 38 weeks gestation of pregnancy; Z37.0 Single live birth